=== PATIENT | female | born 2000 | race Caucasian/White ===

== ENCOUNTER 2021-05-14 20:01 | Inpatient (IN) ==
[2021-05-14] MEDS ORDERED: SODIUM CHLORIDE 0.9% 1000ML 1,000 ML IV STA ×2 (20:38)
[2021-05-14 21:27] LABS: Basophils # (auto) 0.04 K/uL (0-0.2); Basophils % (auto) 0.6 %; Eosinophils # (auto) 0.02 K/uL (0-0.5); Eosinophils % (auto) 0.3 %; Hematocrit (blood only) 39.4 % (37-47); Immature Granulocytes # (auto) 0.01 K/uL (0.00-0.02); Immature Granulocytes % (auto) 0.1 %; Lymphocytes # (auto) 1.37 K/uL (1.2-3.4); Lymphocytes % (auto) 18.9 %; Mean Platelet Volume 10.9 fL (7.4-10.4); Monocytes # (auto) 0.33 K/uL (0.11-0.59); Monocytes % (auto) 4.6 %; Neutrophils # (auto) 5.47 K/uL (1.4-6.5); Neutrophils % (auto) 75.5 %; Platelet Count 404 K/uL (130-400); RDW Coefficient of Variation 14.2 % (11.5-14.5); Red Blood Count 4.33 M/uL (4.2-5.4); White Blood Count 7.24 K/uL (4.8-10.8)
[2021-05-14 21:38] LABS: D Dimer 340 ug/L FEU (0-500); Partial Thromboplastin Ratio 0.9; Partial Thromboplastin Time 26.1 Seconds (21.0-31.0); Prothrombin Time 10.9 Seconds (9.0-12.0)
[2021-05-14 21:49] LABS: Troponin I < 0.03 ng/ml (0-0.04)
[2021-05-14 21:51] LABS: Alanine Aminotransferase 378 U/L (7-52); Albumin Globulin Ratio 1.2 (0.9-2); Albumin Level 4.4 gm/dl (3.4-5.0); Alkaline Phosphatase 147 U/L (34-104); Anion Gap 8 (3-11); Aspartate Aminotransferase 137 U/L (13-39); BUN Creatinine Ratio 9.3 (10-20); Bilirubin,Total 3.7 mg/dl (0.2-1.0); Blood Urea Nitrogen 7 mg/dl (6-23); Carbon Dioxide 22 mmol/L (21-32); Chloride 107 mmol/L (98-107); Creatinine Clr Calc Pharmacy 151.7 ml/min; Est GFR (African American) 132.1 ml/min; Est GFR (Non-African American) 113.9 ml/min; Globulin 3.7 gm/dl (2.5-4.0); Glucose 110 mg/dl (70-99(Fasting)); Lipase 20 U/L (11-82); Potassium 3.9 mmol/L (3.5-5.1); Sodium 137 mmol/L (136-145); Total Protein 8.1 gm/dl (6.0-8.3)
--- NOTE | 2021-05-15 00:07 | Emergency Department Note ---
History of Present Illness General Chief complaint: GI Assessment Stated complaint: MED EX SAW OBSTRUCTION IN STOMACH, NEEDS XRAY Time Seen by Provider: 05/14/21 20:22 History of Present Illness Maximum Pain Intensity: 1 20-year-old female who presents to the emergency department with a friend at the referral of the [facility] [place]. The patient presents with complaint of generalized chest, right posterior shoulder and upper stomach discomfort. The patient reports that she has had discomfort for the past 3 days. The patient reports that she now has difficulty eating large amounts of food or drink without vomiting. When she does vomit, the pain completely goes away. Patient reports that she has had reflux in the past, and reports that this feels similar. She denies any shortness of breath or other upper respiratory symptoms. She denies current control or tobacco use. She denies personal or family history of blood clots or heart disease. Patient den ies history of gallbladder disease. She denies any significant central or lower back discomfort. She denies any other significant alleviating or aggravating factors for the pain, and rates her discomfort a 2 out of 10 on my exam. The patient reports that they did do an x-ray at the [facility] told her that she possibly has a gastric outlet obstruction. Home Medications Medication Instructions Recorded Confirmed Type calcium carbonate 200 mg calcium 400 - 600 mg PO BID PRN 05/14/21 05/14/21 History (500 mg) chewable tablet (Tums) famotidine 20 mg tablet (Pepcid) 20 mg PO DAILY 05/14/21 05/14/21 History ondansetron HCl 4 mg tablet 4 mg PO Q6H PRN 05/14/21 05/14/21 History Allergies Allergy/AdvReac Type Severity Reaction Status Date / Time No Known Allergies Allergy Unverified 05/14/21 22:10 Past Med/Surg History Medical History No significant past medical history Surgical History No significant past surgical history Family History Mother Gallbladder disease Social History Smoking Status: Never smoker Preferred Language: Kazakh marital status: Single current occupational status: student Feels Safe at Home: Yes Review of Systems 10 system review was performed and was negative except for pertinent positives and negatives as indicated in history of present illness Physical Exam Vital Signs Vital Signs - 24 hr 05/14/21 20:08 05/14/21 21:16 05/14/21 23:23 Temperature 36.8 C Temperature Source Temporal Artery Scan Pulse Rate 70 Pulse Rate [Right Finger] 59 L 55 L Respiratory Rate 18 20 20 Respiratory Effort / Characteristics Non-Labored Spontaneous Non-Labored Spontaneous Respiratory Depth Normal Normal Respiratory Pattern Regular Regular Blood Pressure 126/80 Blood Pressure [Right Arm] 129/55 L 115/62 Blood Pressure Mean 95 Blood Pressure Mean [Right Arm] 79 79 Blood Pressure Position [Right Arm] Lying Pulse Oximetry 99 100 99 Oxygen Delivery Method Room Air Room Air Room Air Sepsis Recent Fever Within 48 Hours No Sepsis New/Unexplained Change in Mental Status No Sepsis Action Taken by Nursing No Action Required 05/15/21 01:00 Temperature Temperature Source Pulse Rate Pulse Rate [Right Finger] 59 L Respiratory Rate 20 Respiratory Effort / Characteristics Respiratory Depth Respiratory Pattern Blood Pressure Blood Pressure [Right Arm] 124/69 Blood Pressure Mean Blood Pressure Mean [Right Arm] 87 Blood Pressure Position [Right Arm] Pulse Oximetry 98 Oxygen Delivery Method Sepsis Recent Fever Within 48 Hours Sepsis New/Unexplained Change in Mental Status Sepsis Action Taken by Nursing CONSTITUTIONAL: Healthy and well nourished. Patient does not appear in any acute distress. HEENT: No scleral icterus or conjunctival injection/pallor. NECK: Full active range of motion without discomfort. RESPIRATORY: Clear to auscultation bilaterally with no wheezing, crackles, rhonchi or stridor. The breathing does not worsen discomfort. CARDIOVASCULAR: Regular rate and rhythm with no murmurs, rubs or gallops. GASTROINTESTINAL: Bowel sounds present in all quadrants. Patient has mild right upper quadrant and epigastric tenderness to palpation. No obvious Marshall sign, CVA tenderness, McBurney's point tenderness, rigidity, guarding or rebound. MUSCULOSKELETAL: Full range of motion of all joints without discomfort. No worsening pain with range of motion of the right shoulder. INTEGUMENTARY: No rash or other significant dermatologic conditions noted. HEMATOLOGIC: No ecchymosis or petechiae. PSYCHIATRIC: Positive affect. NEUROLOGIC: No focal neurologic deficits noted. Course Course Patient history and physical exam were performed. Nurses notes were reviewed. Vital signs were reviewed and were normal. The patient brought no additional paperwork or imaging studies with her from the [facility] [place]. IV access was established, and labs were drawn. The patient was hydrated with a liter normal saline. She refused any analgesics or antiemetics. And abdomen obstruction series with a PA chest view was performed and was normal without evidence for abdominal free air, obstructive pattern or other acute intrathoracic findings. Review of labs shows a normal white count with a mild thrombocytosis. No left shift or bandemia is noted. Coagulation studies, D- dimer and troponin were normal. CMP shows an elevated total bilirubin of 3.7, AST 137, ALT 378 and alkaline phosphatase of 147. Lipase was normal. Urine was negative. Laboratory findings were discussed with the patient. I did recommend gallbladder ultrasound for further evaluation of cholecystitis. In the meantime, the patient reports that she did call her mother regarding her status, with her mother reporting that she also had her gallbladder removed in her early 40s; the patient was not aware of this history. There was a delay after ultrasound studies were performed due to a delay with [employer] reads. human performance technologist notes does show evidence for gallbladder wall thickening and gallstones, likely consistent with cholecystitis. The case was discussed with Dusty Cullen PA-C with the [facility] surgical service, who recommended hospitalist admission with GI consultation as well. The case was then further discussed with Dr. Lorna Mcdowell, [facility] hospitalist service. Please see their dictations for further treatment and final disposition. COVID-19 test was performed and was negative. The patient refused any additional analgesics or antiemetics prior to transfer of care. Administered Medications Discontinued Medications Sodium Chloride (Nss 1000ml) 1,000 mls @ 999 mls/hr IV .Q1H1M STA Stop: 05/14/21 21:38 Last Infusion: 05/14/21 22:20 Dose: 0 mls/hr Documented by: [id number] Infusion: 05/14/21 22:20 Dose: 0 mls/hr Documented by: [id number] Admin: 05/14/21 20:47 Dose: 999 mls/hr Documented by: [id number] Sodium Chloride (Nss 1000ml) 1,000 mls @ 999 mls/hr IV .Q1H1M STA Stop: 05/14/21 21:38 Last Infusion: 05/14/21 22:21 Dose: 0 mls/hr Documented by: [id number] Admin: 05/14/21 20:47 Dose: 999 mls/hr Documented by: [id number] Medical Decision Making Medical Records Attestation: I reviewed the patient's medical records. Home Medications Current Medication List: was personally reviewed by me Laboratory Data Attestation: I reviewed the patient's lab results. Result diagrams: 05/14/21 20:46 05/14/21 20:46 Lab Results 05/14/21 05/14/21 05/14/21 Range/Units 20:46 20:46 20:46 WBC 7.24 (4.8-10.8) K/uL RBC 4.33 (4.2-5.4) M/uL Hgb 13.0 (12.0-16.0) g/dL Hct 39.4 (37-47) % MCV 91.0 (80-100) fL MCH 30.0 (25-34) pg MCHC 33.0 (32-36) g/dL RDW Std Deviation 48.0 H (36.4-46.3) fL RDW Coeff of Jesu 14.2 (11.5-14.5) % Plt Count 404 H (130-400) K/uL MPV 10.9 H (7.4-10.4) fL Immature Gran % (Auto) 0.1 % Neut % (Auto) 75.5 % Lymph % (Auto) 18.9 % Moore % (Auto) 4.6 % Eos % (Auto) 0.3 % Baso % (Auto) 0.6 % Neut # (Auto) 5.47 (1.4-6.5) K/uL Lymph # (Auto) 1.37 (1.2-3.4) K/uL Moore # (Auto) 0.33 (0.11-0.59) K/uL Eos # (Auto) 0.02 (0-0.5) K/uL Baso # (Auto) 0.04 (0-0.2) K/uL Immature Gran # (Auto) 0.01 (0.00-0.02) K/uL PT 10.9 (9.0-12.0) Seconds INR 1.0 (0.9-1.1) APTT 26.1 (21.0-31.0) Seconds PTT Ratio 0.9 D-Dimer 340 (0-500) ug/L FEU Sodium 137 (136-145) mmol/L Potassium 3.9 (3.5-5.1) mmol/L Chloride 107 (98-107) mmol/L Carbon Dioxide 22 (21-32) mmol/L Anion Gap 8 (3-11) BUN 7 (6-23) mg/dl Creatinine 0.75 (0.6-1.2) mg/dl Est Cr Clr Drug Dosing 151.7 ml/min Est GFR ( Amer) 132.1 ml/min Est GFR (Non-Af Amer) 113.9 ml/min BUN/Creatinine Ratio 9.3 L (10-20) Glucose 110 H (70-99(Fasting)) mg/dl Calcium 10.0 (8.5-10.1) mg/dl Total Bilirubin 3.7 H (0.2-1.0) mg/dl AST 137 H (13-39) U/L ALT 378 H (7-52) U/L Alkaline Phosphatase 147 H (34-104) U/L Troponin I < 0.03 (0-0.04) ng/ml Total Protein 8.1 (6.0-8.3) gm/dl Albumin 4.4 (3.4-5.0) gm/dl Globulin 3.7 (2.5-4.0) gm/dl Albumin/Globulin Ratio 1.2 (0.9-2) Lipase 20 (11-82) U/L POC Ur Test (NEG) 05/14/21 Range/Units 20:57 WBC (4.8-10.8) K/uL RBC (4.2-5.4) M/uL Hgb (12.0-16.0) g/dL Hct (37-47) % MCV (80-100) fL MCH (25-34) pg MCHC (32-36) g/dL RDW Std Deviation (36.4-46.3) fL RDW Coeff of Jesu (11.5-14.5) % Plt Count (130-400) K/uL MPV (7.4-10.4) fL Immature Gran % (Auto) % Neut % (Auto) % Lymph % (Auto) % Moore % (Auto) % Eos % (Auto) % Baso % (Auto) % Neut # (Auto) (1.4-6.5) K/uL Lymph # (Auto) (1.2-3.4) K/uL Moore # (Auto) (0.11-0.59) K/uL Eos # (Auto) (0-0.5) K/uL Baso # (Auto) (0-0.2) K/uL Immature Gran # (Auto) (0.00-0.02) K/uL PT (9.0-12.0) Seconds INR (0.9-1.1) APTT (21.0-31.0) Seconds PTT Ratio D-Dimer (0-500) ug/L FEU Sodium (136-145) mmol/L Potassium (3.5-5.1) mmol/L Chloride (98-107) mmol/L Carbon Dioxide (21-32) mmol/L Anion Gap (3-11) BUN (6-23) mg/dl Creatinine (0.6-1.2) mg/dl Est Cr Clr Drug Dosing ml/min Est GFR ( Amer) ml/min Est GFR (Non-Af Amer) ml/min BUN/Creatinine Ratio (10-20) Glucose (70-99(Fasting)) mg/dl Calcium (8.5-10.1) mg/dl Total Bilirubin (0.2-1.0) mg/dl AST (13-39) U/L ALT (7-52) U/L Alkaline Phosphatase (34-104) U/L Troponin I (0-0.04) ng/ml Total Protein (6.0-8.3) gm/dl Albumin (3.4-5.0) gm/dl Globulin (2.5-4.0) gm/dl Albumin/Globulin Ratio (0.9-2) Lipase (11-82) U/L POC Ur Test NEG (NEG) Imaging Data Attestation: I personally reviewed and interpreted this imaging study as follows: My Impression: My interpretation of an abdomen obstruction series with the PA chest view does not show any obstructive pattern, subdiaphragmatic air, pneumothorax, cardiac prominence or pulmonary infiltrates/consolidations. Radiologist report is pending. Right upper quadrant ultrasound was pending at the time of transfer of care to the hospitalist service, but voip technician notes are suggestive of cholecystitis. Local radiologist report is pending. Blood Pressure Blood Pressure Findings: Normal blood pressure MDM Narrative Patient presents emergency department with complaint of epigastric right upper quadrant pain for the past 4 days. Work-up today does show elevated LFTs, total bilirubin and alkaline phosphatase. Initial ultrasound findings are suggestive of cholecystitis. The patient has undergone surgical consultation, who has recommended GI consultation for possible MRCP. At this point, no other acute findings are noted to suggest pancreatitis, bowel obstruction or abdominal free air or acute findings within the thoracic region. Patient's cardiac work-up, including ECG and troponin were also normal. D-dimer was also normal, with low likelihood of pulmonary embolus. Impression & Plan Cholecystitis with cholelithiasis, Nausea and vomiting, Intermittent right upper quadrant abdominal pain Discharge Plan Visit Data Chief Complaint: GI Assessment Stated Complaint: MED EX SAW OBSTRUCTION IN STOMACH, NEEDS XRAY ED Provider: Raf Portillo ED Midlevel Provider: Brent Valerio Discharge Problem: Cholecystitis with cholelithiasis, Nausea and vomiting, Intermittent right upper quadrant abdominal pain Forms Stand Alone Forms: [facility] [employer] Prescriptions Prescriptions: No Action ondansetron HCl 4 mg Tablet 4 mg PO Q6H PRN (Reason: Nausea) RF: 0 famotidine [Pepcid] 20 mg Tablet 20 mg PO DAILY RF: 0 calcium carbonate [Tums] 200 mg calcium (500 mg) Tablet,Chewable 400 - 600 mg PO BID PRN (Reason: gi-upset) RF: 0 Referrals Referrals: [facility] [Primary Care Provider] - Discharge Problem: Cholecystitis with cholelithiasis Qualifiers: Cholelithiasis location: gallbladder Cholecystitis acuity: acute Biliary obstruction: with biliary obstruction Qualified Code(s): K80.01 - Calculus of gallbladder with acute cholecystitis with obstruction Nausea and vomiting Qualifiers: Vomiting type: unspecified Qualified Code(s): R11.2 - Nausea with vomiting, unspecified
--- NOTE | 2021-05-15 01:10 | Surgery Consultation ---
Date of Consultation May 15, 2021 Assessment & Plan (1) Cholecystitis with cholelithiasis: Due to the patient's clinical presentation, labs,, imaging she is being admitted on the hospitalist service. We recommend proceeding as follows: Provide analgesics Provide antiemetics Recommend initiating antibiotics Hydration measures with IV fluids to be implemented Implement n.p.o. status Recommend following serial labs Patient is noted to have elevated LFTs. I suspect this may be due to to her gallstones. It is possible unlikely that she has passed gallstones in her common bile duct. Therefore recommend that she undergo an MRCP to evaluate for choledocholithiasis. Choledocholithiasis is present, gastroenterology consultation will be warranted for consideration of ERCP. The decision about proceeding with cholecystectomy will be impacted by results of MRCP as well as potential gastroenterology input. We will continue to follow along with the patient is hospitalized and await results of pending studies with further input to follow. At the patient's request I discussed the above with her mother via phone at [phone] Supervising Physician Co-Signing Physician Notes I personally saw and evaluated the patient with Sohail Cullen PA-C and agree with the assessment and plan. 20-year-old female with cholelithiasis, elevated LFTs concerning for choledocholithiasis Ultrasound images and results reviewed by me, dilated CBD Would recommend a GI consult to evaluate for choledocholithiasis Clinically she does not have acute cholecystitis We will follow up on GI recommendations We will plan on cholecystectomy this admission following any GI recommendations History of Present Illness Reason for Consultation: Cholelithiasis History of Present Illness This is a 20-year-old female who presented to [facility] emergency department at the recommendation of a medical [facility] where she sought care. Patient notes for approximately 3 days she has been having postprandial pain located primarily in the epigastric and right upper quadrant. When the pa in comes she says it is usually related to eating. She says that the pain is improved with nausea vomiting which usually ensue. She denies any fevers, shakes, chills. She does note that the pain comes and goes without any other modifying factors. She did report that she tried taking Pepcid which helped only slightly with the pain. Patient reports that she has not had any prior abdominal surgeries. In the emergency department [facility] the patient did have an obstruction series that did not show any free air under her diaphragm or any evidence of infiltrates in the lungs. Abdominal ultrasound showed gallstones with gallbladder sludge. Labs include a CBC her white blood cell count, hemoglobin, hematocrit, were all within normal range. Her platelet count was noted to be 44,000. Coagulation studies were noted to be normal. Chemistry profile showed sodium, potassium, BUN, and creatinine were all normal. Patient did have elevation of LFTs with a total bilirubin of 3.7. AST and ALT were 137 and 378 respectively. Alkaline phosphatase was 147. A test was noted be negative. A Covid test was ordered and is pending. Her lipase was nonelevated. At the time of my interview she was resting comfortably in bed in no distress. Allergies Allergy/AdvReac Type Severity Reaction Status Date / Time No Known Allergies Allergy Unverified 05/14/21 22:10 Home Medications Medication Instructions Recorded Confirmed Type calcium carbonate 200 mg calcium 400 - 600 mg PO BID PRN 05/14/21 05/14/21 History (500 mg) chewable tablet (Tums) famotidine 20 mg tablet (Pepcid) 20 mg PO DAILY 05/14/21 05/14/21 History ondansetron HCl 4 mg tablet 4 mg PO Q6H PRN 05/14/21 05/14/21 History Patient History Medical History No significant past medical history Surgical History No significant past surgical history Family History Mother Gallbladder disease Social History Smoking Status: Never smoker Hx Alcohol Use: Yes Hx Substance Use: No Preferred Language: Argentine Belt Sander Stone Required: No Beliefs That Will Affect Care: None marital status: Single Current Living Situation: Other Current Living Situation Comment: Apartment- college current occupational status: student Feels Safe at Home: Yes Assistive Devices: None Review of Systems Constitutional: no fever and no chills Eyes: no diplopia Ear, Nose, Mouth, Throat: no ear pain Respiratory: no cough and no dyspnea Cardiovascular: no chest pain Gastrointestinal: + abdominal pain, + nausea and + vomiting Genitourinary: no dysuria Musculoskeletal: no back pain Integumentary: no rash Neurologic: no localized weakness Physical Exam Constitutional: WD/WN, vitals as above Eyes: + anicteric sclerae ENMT: Ears: no hearing impairment and no external ear abnormality No sublingual jaundice Neck: trachea midline Respiratory: normal respiratory effort; no respiratory distress and no labored breathing Cardiovascular: Rate/Rhythm: regular rate and regular rhythm Gastrointestinal (Abdomen): Abdomen is soft and nondistended. There is no rebound tenderness or guarding. There is slight pain noted with palpation of the epigastric area and to a lesser degree the right upper quadrant. Musculoskeletal: No calf tenderness Skin: no rashes and no jaundice Neurologic: moves all extremities Psychiatric: A+Ox3, euthymic affect Results & Data ([facility]) Vital Signs (Past 12 Hours) Vital Signs Temp Pulse Pulse Resp BP BP Pulse Ox 05/15/21 01:00 59 L 20 124/69 98 05/14/21 23:23 55 L 20 115/62 99 05/14/21 21:16 59 L 20 129/55 L 100 05/14/21 20:08 36.8 C 70 18 126/80 99 PG Care Time/CCT Total # of Minutes Spent Total Time Spent with Patient: Total time spent is greater than 50% in coordination of care (as documented) at patient's floor/unit and/or counseling patient: Coding Level of Care Code 69509 Inpt Consult Level 5 Diagnoses Cholecystitis with cholelithiasis K80.01 Biliary obstruction: with biliary obstruction Cholecystitis acuity: acute Cholelithiasis location: gallbladder (1) Cholecystitis with cholelithiasis Biliary obstruction: with biliary obstruction Cholecystitis acuity: acute Cholelithiasis location: gallbladder Qualified Code(s): K80.01 - Calculus of gallbladder with acute cholecystitis with obstruction
--- NOTE | 2021-05-15 01:27 | History & Physical Report ---
Date of Service May 15, 2021 Assessment & Plan (1) Cholecystitis with cholelithiasis: Plan: Concern for acute gallstone cholecystitis. Elevation of LFTs as above - Tbili/AP/AST and ALT -Admit to medical -Zosyn 3.357gm -Morphine PRN pain -Tylenol PRN pain or fever -Zofran PRN nausea -LR at 125mL/hr x 2 liters -Obtain MRCP to assess for choledocholithiasis. GI consultation pending results of MRCP -General Surgery consultation appreciated -Repeat LFTs, CBC in AM (2) Nausea and vomiting: Plan: Secondary to #1 -Zofran PRN Plan: F/E/N - LR at 125mL/hr x 2, electrolytes WNL, NPO for now Ppx - Low risk for DVT Code - Full per discussion with patient Dispo -Admit to medical History of Present Illness Chief Complaint: Abdominal pain Primary Care Provider: Rust Gini Vee is a pleasant 20yo female with no significant past medical or surgical history presenting with three days of abdominal discomfort. Pain is mostly post-prandial, located in RUQ, upper abdomen, chest and right shoulder. She has associated nausea with several episodes of non-bloody/non-bilious vomiting. Her pain is resolved with vomiting. No fever, chills, cough, SOB, diarrhea, dysuria No additional complaints at this time Patient afebrile, HD stable in the ER ER Course: NSS Allergies Allergy/AdvReac Type Severity Reaction Status Date / Time No Known Allergies Allergy Unverified 05/14/21 22:10 Home Medications Medication Instructions Recorded Confirmed Type calcium carbonate 200 mg calcium 400 - 600 mg PO BID PRN 05/14/21 05/14/21 History (500 mg) chewable tablet (Tums) famotidine 20 mg tablet (Pepcid) 20 mg PO DAILY 05/14/21 05/14/21 History ondansetron HCl 4 mg tablet 4 mg PO Q6H PRN 05/14/21 05/14/21 History Past Med/Surg History Medical History No significant past medical history Surgical History No significant past surgical history Family History Mother Gallbladder disease Social History Smoking Status: Never smoker Preferred Language: Welsh marital status: Single current occupational status: student Feels Safe at Home: Yes Review of Systems Review of Systems: All systems reviewed & are unremarkable except as noted in HPI & below Physical Exam Physical Exam: General: patient resting comfortably, NAD, non-toxic in appearance, AA&O x 4 Skin: warm, dry, intact, no rashes or lesions HEENT: NC/AT, PERRL, EOMI, anicteric sclera, conjunctiva without injection, external ear normal to inspection and nontender, nares patent, moist mucus membranes, dentition intact, no oropharyngeal lesions, neck supple, trachea midline, no LAD, no thyromegaly, no JVD Heart: +S1/S2, regular, no m/r/g Lungs: equal air entry bilaterally, no rales/rhonchi/wheezes Abd: +BS, soft, NT/ND, no masses/organomegaly/ascites, negative Marshall's sign Ext: warm, 2+ pulses in UE/LE bilaterally, no clubbing/cyanosis or edema Neuro: nonfocal, patient AA&O x 4, speech intact, no facial droop, moving all extremities on command with equal strength 5/5 Results & Data Results & Data ([facility]) Vital Signs (Past 12 Hours) Vital Signs Temp Pulse Pulse Resp BP BP Pulse Ox 05/15/21 01:00 59 L 20 124/69 98 05/14/21 23:23 55 L 20 115/62 99 05/14/21 21:16 59 L 20 129/55 L 100 05/14/21 20:08 36.8 C 70 18 126/80 99 Laboratory Results Laboratory Results WBC 7.24 K/uL (4.8-10.8) 05/14/21 20:46 RBC 4.33 M/uL (4.2-5.4) 05/14/21 20:46 Hgb 13.0 g/dL (12.0-16.0) 05/14/21 20:46 Hct 39.4 % (37-47) 05/14/21 20:46 MCV 91.0 fL (80-100) 05/14/21 20:46 MCH 30.0 pg (25-34) 05/14/21 20:46 MCHC 33.0 g/dL (32-36) 05/14/21 20:46 RDW Std Deviation 48.0 fL (36.4-46.3) H 05/14/21 20:46 RDW Coeff of Jesu 14.2 % (11.5-14.5) 05/14/21 20:46 Plt Count 404 K/uL (130-400) H 05/14/21 20:46 MPV 10.9 fL (7.4-10.4) H 05/14/21 20:46 Immature Gran % (Auto) 0.1 % 05/14/21 20:46 Neut % (Auto) 75.5 % 05/14/21 20:46 Lymph % (Auto) 18.9 % 05/14/21 20:46 [place] % (Auto) 4.6 % 05/14/21 20:46 Eos % (Auto) 0.3 % 05/14/21 20:46 Baso % (Auto) 0.6 % 05/14/21 20:46 Neut # (Auto) 5.47 K/uL (1.4-6.5) 05/14/21 20:46 Lymph # (Auto) 1.37 K/uL (1.2-3.4) 05/14/21 20:46 [place] # (Auto) 0.33 K/uL (0.11-0.59) 05/14/21 20:46 Eos # (Auto) 0.02 K/uL (0-0.5) 05/14/21 20:46 Baso # (Auto) 0.04 K/uL (0-0.2) 05/14/21 20:46 Immature Gran # (Auto) 0.01 K/uL (0.00-0.02) 05/14/21 20:46 PT 10.9 Seconds (9.0-12.0) 05/14/21 20:46 INR 1.0 (0.9-1.1) 05/14/21 20:46 APTT 26.1 Seconds (21.0-31.0) 05/14/21 20:46 PTT Ratio 0.9 05/14/21 20:46 D-Dimer 340 ug/L FEU (0-500) 05/14/21 20:46 Sodium 137 mmol/L (136-145) 05/14/21 20:46 Potassium 3.9 mmol/L (3.5-5.1) 05/14/21 20:46 Chloride 107 mmol/L (98-107) 05/14/21 20:46 Carbon Dioxide 22 mmol/L (21-32) 05/14/21 20:46 Anion Gap 8 (3-11) 05/14/21 20:46 BUN 7 mg/dl (6-23) 05/14/21 20:46 Creatinine 0.75 mg/dl (0.6-1.2) 05/14/21 20:46 Est Cr Clr Drug Dosing 151.7 ml/min 05/14/21 20:46 Est GFR ( Amer) 132.1 ml/min 05/14/21 20:46 Est GFR (Non-Af Amer) 113.9 ml/min 05/14/21 20:46 BUN/Creatinine Ratio 9.3 (10-20) L 05/14/21 20:46 Glucose 110 mg/dl (70-99(Fasting)) H 05/14/21 20:46 Calcium 10.0 mg/dl (8.5-10.1) 05/14/21 20:46 Total Bilirubin 3.7 mg/dl (0.2-1.0) H 05/14/21 20:46 AST 137 U/L (13-39) H 05/14/21 20:46 ALT 378 U/L (7-52) H 05/14/21 20:46 Alkaline Phosphatase 147 U/L (34-104) H 05/14/21 20:46 Troponin I < 0.03 ng/ml (0-0.04) 05/14/21 20:46 Total Protein 8.1 gm/dl (6.0-8.3) 05/14/21 20:46 Albumin 4.4 gm/dl (3.4-5.0) 05/14/21 20:46 Globulin 3.7 gm/dl (2.5-4.0) 05/14/21 20:46 Albumin/Globulin Ratio 1.2 (0.9-2) 05/14/21 20:46 Lipase 20 U/L (11-82) 05/14/21 20:46 POC Ur Test NEG (NEG) 05/14/21 20:57 SARS-CoV-2, RNA, NAAT NEGATIVE (NEGATIVE) 05/15/21 01:00 Diagnostic Findings Abdominal US performed - read pending CXR - by my interpretation, no acute illness ECG Additional Comments: EKG with sinus bradycardia at 54bpm, no acute ischemic changes Code Status & VTE Plan VTE Prophylaxis Plan VTE Prophylaxis will be ordered: No PG Care Time/CCT Total # of Minutes Spent Total Time Spent with Patient: Total time spent is greater than 50% in coordination of care (as documented) at patient's floor/unit and/or counseling patient: Coding Level of Care Code INT OBSERVATION CARE 50M LVL 2 Diagnoses Cholecystitis with cholelithiasis K80.01 Biliary obstruction: with biliary obstruction Cholecystitis acuity: acute Cholelithiasis location: gallbladder Nausea and vomiting R11.2 Vomiting type: unspecified (1) Cholecystitis with cholelithiasis Biliary obstruction: with biliary obstruction Cholecystitis acuity: acute Cholelithiasis location: gallbladder Qualified Code(s): K80.01 - Calculus of gallbladder with acute cholecystitis with obstruction (2) Nausea and vomiting Vomiting type: unspecified Qualified Code(s): R11.2 - Nausea with vomiting, unspecified
[2021-05-15] MEDS ORDERED: PIPERACILLIN/TAZOBACTAM 3.375 GM in DEXTROSE 5% 100 ML IV ONE (02:30)
[2021-05-15] MEDS ORDERED: ONDANSETRON INJ 2 MG/ML 2 ML VIAL IV PRN (02:30)
[2021-05-15] MEDS ORDERED: MoRPHine SULFATE 2 MG/ML CARP IV PRN (02:30)
[2021-05-15] MEDS ORDERED: PIPERACILL/TAZOBAC CONSULT ACTIVE PRN (02:30)
[2021-05-15] MEDS: LACTATED RINGER'S 1,000 ML IV SCH ×3 (03:21→18:10)
--- NOTE | 2021-05-15 06:32 | Surgery Progress Note ---
Date of Service May 15, 2021 Assessment & Plan (1) Cholecystitis with cholelithiasis: Plan: Patient has been admitted on the hospitalist service. We are proceeding as follows: Continue analgesics as needed Continue antiemetics as needed -Continue antibiotics Zosyn has been initiated Continue hydration measures with IV fluids Maintain on n.p.o. status for the present time Follow serial labs, which are pending this morning As noted at time of admission patient had elevation of LFTs. An MRCP has been ordered which is pending. Results of MRCP will dictate the next step in her care plan. If choledocholithiasis is noted GI consultation with potential ERCP may be warranted. If choledocholithiasis is not noted the decision to proceed directly with cholecystectomy may be entertained. Further recommendations will be made based on pending labs and MRCP results. At the patient's request I discussed the above with her mother via phone at [phone] shortly after my visit in the emergency department Admission and Anticipated Discharge Date Admission Date: May 15, 2021 Supervising Physician Co-Signing Physician Notes I personally saw and evaluated the patient with Sohail Cullen PA-C and agree with the assessment and plan. 20-year-old female with cholelithiasis, elevated LFTs concerning for choledocholithiasis Await GI consult to evaluate for choledocholithiasis Clinically she does not have acute cholecystitis We will follow up on GI recommendations We will plan on cholecystectomy this admission following any GI recommendations Subjective Patient is resting comfortably in bed. Since admission she denies any recurrence or worsening abdominal pain. She also denies any nausea vomiting. He does not voice any new concerns. Physical Exam Gastrointestinal (Abdomen): Abdomen is soft, nondistended, and nontender at this time Results & Data ([facility]) Vital Signs (Past 12 Hours) Vital Signs Temp Pulse Pulse Resp BP BP Pulse Ox 05/15/21 02:40 36.7 C 63 17 129/76 98 05/15/21 02:15 66 20 142/96 H 98 05/15/21 01:00 59 L 20 124/69 98 05/14/21 23:23 55 L 20 115/62 99 05/14/21 21:16 59 L 20 129/55 L 100 05/14/21 20:08 36.8 C 70 18 126/80 99 PG Care Time/CCT Total # of Minutes Spent Total Time Spent with Patient: Total time spent is greater than 50% in coordination of care (as documented) at patient's floor/unit and/or counseling patient: Coding Level of Care Code 54219 Subseq Hosp Care Lvl 1 Diagnoses Cholecystitis with cholelithiasis K80.01 Biliary obstruction: with biliary obstruction Cholecystitis acuity: acute Cholelithiasis location: gallbladder (1) Cholecystitis with cholelithiasis Biliary obstruction: with biliary obstruction Cholecystitis acuity: acute Cholelithiasis location: gallbladder Qualified Code(s): K80.01 - Calculus of gallbladder with acute cholecystitis with obstruction
[2021-05-15 07:29] LABS: Basophils # (auto) 0.03 K/uL (0-0.2); Basophils % (auto) 0.6 %; Eosinophils # (auto) 0.09 K/uL (0-0.5); Eosinophils % (auto) 1.7 %; Hemoglobin 11.6 g/dL (12.0-16.0); Immature Granulocytes # (auto) 0.01 K/uL (0.00-0.02); Immature Granulocytes % (auto) 0.2 %; Lymphocytes # (auto) 2.32 K/uL (1.2-3.4); Lymphocytes % (auto) 42.6 %; Mean Corpuscular Hemoglobin 29.4 pg (25-34); Mean Corpuscular Hgb Conc 32.2 g/dL (32-36); Mean Corpuscular Volume 91.4 fL (80-100); Mean Platelet Volume 11.2 fL (7.4-10.4); Monocytes # (auto) 0.49 K/uL (0.11-0.59); Neutrophils % (auto) 45.9 %; Platelet Count 342 K/uL (130-400); RDW Coefficient of Variation 14.5 % (11.5-14.5); RDW Standard Deviation 48.6 fL (36.4-46.3); Red Blood Count 3.94 M/uL (4.2-5.4); White Blood Count 5.44 K/uL (4.8-10.8)
[2021-05-15 07:53] LABS: Albumin Level 3.9 gm/dl (3.4-5.0); BUN Creatinine Ratio 7.9 (10-20); Bilirubin Direct 1.3 mg/dl (0-0.2); Bilirubin,Total 2.4 mg/dl (0.2-1.0); Calcium 9.2 mg/dl (8.5-10.1); Creatinine Clr Calc Pharmacy 154.5 ml/min; Est GFR (Non-African American) 112.1 ml/min; Potassium 3.6 mmol/L (3.5-5.1); Total Protein 6.8 gm/dl (6.0-8.3)
--- NOTE | 2021-05-15 08:04 | XRay Report ---
XR abdomen 2V w PA chest CLINICAL HISTORY: Abd/chest pain. COMPARISON STUDY: No previous studies for comparison. TECHNIQUE: Single view of the chest. Supine and upright views of the abdomen. FINDINGS: Single frontal view of the chest demonstrates the cardiomediastinal silhouette to be within normal li mits. The lungs are clear of acute alveolar opacities. There is no evidence for pleural effusion. The re is no evidence for vascular congestion. There is no acute osseous pathology. Abdomen: There is no free air or significant air-fluid levels present. The bowel gas pattern is withi n normal limits without evidence for dilatation or obstruction. There is no evidence for organomegaly or gross intra-abdominal mass. No abnormal calcifications are seen along the course of the urinary t racts bilaterally. No acute osseous pathology. IMPRESSION: 1. No acute intra-abdominal or chest abnormality. ACT 112: Negative or not required by law. Electronically signed by: Jareth Hernandez M.D. 05/15/2021 8:03 AM
--- NOTE | 2021-05-15 08:28 | Ultrasound Report ---
US abdomen limited CLINICAL HISTORY: RUQ/epigastric pain. COMPARISON: None. TECHNIQUE: Multiple grayscale and color images of the right upper quadrant of the abdomen. FINDINGS: Pancreas: The pancreas is within normal limits with no focal mass or peripancreatic fluid collection identified. Liver: The liver is homogeneous in echogenicity There is no evidence for a focal mass. There is no in trahepatic biliary duct dilatation. Gallbladder: The gallbladder is well distended with cholelithiasis. Posterior acoustic shadowing is d emonstrated. There is mild wall thickening measuring 4 mm. No pericholecystic edema is seen. There wa s reportedly a negative sonographic Marshall sign. Common Bile Duct: (CBD): It is at the upper limits of normal in size measuring 7 mm Inferior Vena Cava (IVC): The imaged IVC is patent. Right kidney: There is no evidence for hydronephrosis, calculus or gross renal mass. The kidney is no rmal in size. It measures 10.2 cm in greatest length. IMPRESSION: 1. Cholelithiasis with gallbladder wall thickening. While there was a negative sonographic Marshall sig n, early acute cholecystitis cannot be excluded. If indicated clinically, hepatobiliary scan may be h elpful for further evaluation. ACT 112: Negative or not required by law. Electronically signed by: Jareth Hernandez M.D. 05/15/2021 8:25 AM
--- NOTE | 2021-05-15 08:47 | Hospitalist Progress Note ---
Date of Service May 15, 2021 Assessment & Plan (1) Cholecystitis with cholelithiasis: Plan: Concern for acute gallstone cholecystitis. Elevation of LFTs as above - Tbili/AP/AST and ALT. Mom w/ GB disease as well Right upper quadrant ultrasoundPer stat readcholelithiasis. Equivocal sonographic findings for acute cholecystitis (thickened and heterogenous gallbladder wall measuring 0.4 cm in thickness with slightly increased internal vascular flow but negative Marshall sign). Consider HIDA scan for evaluation. Mildly dilated visualized common bile duct with diameter of 0.7 cm. No choledocholithiasis or other obstructive lesion visualized in the current henry dy. Normal visualized liver, pancreas, and right kidney. Continue Zosyn LR @ 125cc/hr Pain control -- tylenol/morphine prn ZOfran prn nausea General surgery on consult -- appreciate assistance MRCP changed to stat due to being on a weekend IF evidence for choledocholithiasis, will need to consult GI for ERCP. If no evidence, surgery to take to OR for sujey --> MRCP with cholelithiasis without choledocholithiasis, however discussed with general surgery and ok to give clears today and plans NPO after midnight They would also like consult for GI just in case additional things wanted to be ordered, consult placed LFTs trending down but still elevated (on admit, TB 3.7, AST 137, ALT 378, ALP 147) --> currently TB 2.4 (DB 1.3), AST 105 ALT 294 ALP 122 Continue to trend (2) Nausea and vomiting: Plan: Secondary to #1 -Zofran PRN Plan: F/E/N - LR at 125mL/hr x 2, electrolytes WNL, Clear liquid diet for now, NPO after midnight GI consulted per surgery recs Ppx - Low risk for DVT pre-op, would order following surgery Admission and Anticipated Discharge Date Admission Date: May 15, 2021 Supervising Physician Co-Signing Physician Notes PA Supervision Note: I did not personally see or examine the patient today, but I verified all jones points of HEMA Holly's assessment and plan with the following exceptions/additions: None Subjective BRIDGE: ADMIT AFTER MIDNIGHT Seen after MRCP, discussed results. Discussed conversation with general surgery and can have some clears for today, NPO after midnight for planned sujey. Pain currently 02/28 and controlled with ordered medications. No nausea. No fever/chills, chest pain, shortness of breath, nausea at present time. Questions/concerns addressed at this time. Review of Systems Review of Systems: All systems reviewed & are unremarkable except as noted in HPI & below Physical Exam Physical Exam: General: patient resting comfortably, NAD, non-toxic in appearance, AA&O x 4 Skin: warm, dry, intact, no rashes or lesions HEENT: NC/AT, PERRL, EOMI, anicteric sclera, conjunctiva without injection, external ear normal to inspection and nontender, nares patent, moist mucus membranes, dentition intact, no oropharyngeal lesions, neck supple, trachea midline, no LAD, no thyromegaly, no JVD Heart: +S1/S2, regular, no m/r/g Lungs: equal air entry bilaterally, no rales/rhonchi/wheezes Abd: +BS, soft, NT/ND, no masses/organomegaly/ascites, negative Marshall's sign Ext: warm, 2+ pulses in UE/LE bilaterally, no clubbing/cyanosis or edema Neuro: nonfocal, patient AA&O x 4, speech intact, no facial droop, moving all extremities on command with equal strength 5/5 Results & Data Results & Data ([facility]) Vital Signs (Past 12 Hours) Vital Signs Temp Pulse Resp BP Pulse Ox 05/15/21 07:41 36.8 C 77 16 120/75 97 05/15/21 02:40 36.7 C 63 17 129/76 98 05/15/21 02:15 66 20 142/96 H 98 05/15/21 01:00 59 L 20 124/69 98 05/14/21 23:23 55 L 20 115/62 99 05/14/21 21:16 59 L 20 129/55 L 100 Laboratory Results 05/15/21 05/15/21 05/15/21 Range/Units 06:45 06:45 01:00 WBC 5.44 (4.8-10.8) K/uL RBC 3.94 L (4.2-5.4) M/uL Hgb 11.6 L (12.0-16.0) g/dL Hct 36.0 L (37-47) % MCV 91.4 (80-100) fL MCH 29.4 (25-34) pg MCHC 32.2 (32-36) g/dL RDW Std Deviation 48.6 H (36.4-46.3) fL RDW Coeff of Jesu 14.5 (11.5-14.5) % Plt Count 342 (130-400) K/uL MPV 11.2 H (7.4-10.4) fL Immature Gran % (Auto) 0.2 % Neut % (Auto) 45.9 % Lymph % (Auto) 42.6 % [place] % (Auto) 9.0 % Eos % (Auto) 1.7 % Baso % (Auto) 0.6 % Neut # (Auto) 2.50 (1.4-6.5) K/uL Lymph # (Auto) 2.32 (1.2-3.4) K/uL [place] # (Auto) 0.49 (0.11-0.59) K/uL Eos # (Auto) 0.09 (0-0.5) K/uL Baso # (Auto) 0.03 (0-0.2) K/uL Immature Gran # (Auto) 0.01 (0.00-0.02) K/uL PT (9.0-12.0) Seconds INR (0.9-1.1) APTT (21.0-31.0) Seconds PTT Ratio D-Dimer (0-500) ug/L FEU Sodium 139 (136-145) mmol/L Potassium 3.6 (3.5-5.1) mmol/L Chloride 109 H (98-107) mmol/L Carbon Dioxide 22 (21-32) mmol/L Anion Gap 8 (3-11) BUN 6 (6-23) mg/dl Creatinine 0.76 (0.6-1.2) mg/dl Est Cr Clr Drug Dosing 154.5 ml/min Est GFR ( Amer) 130.0 ml/min Est GFR (Non-Af Amer) 112.1 ml/min BUN/Creatinine Ratio 7.9 L (10-20) Glucose 92 (70-99(Fasting)) mg/dl Calcium 9.2 (8.5-10.1) mg/dl Total Bilirubin 2.4 H (0.2-1.0) mg/dl Direct Bilirubin 1.3 H (0-0.2) mg/dl AST 105 H (13-39) U/L ALT 294 H (7-52) U/L Alkaline Phosphatase 122 H (34-104) U/L Troponin I (0-0.04) ng/ml Total Protein 6.8 (6.0-8.3) gm/dl Albumin 3.9 (3.4-5.0) gm/dl Globulin (2.5-4.0) gm/dl Albumin/Globulin Ratio (0.9-2) Lipase (11-82) U/L POC Ur Test (NEG) SARS-CoV-2, RNA, NAAT NEGATIVE (NEGATIVE) 05/14/21 05/14/21 05/14/21 Range/Units 20:57 20:46 20:46 WBC (4.8-10.8) K/uL RBC (4.2-5.4) M/uL Hgb (12.0-16.0) g/dL Hct (37-47) % MCV (80-100) fL MCH (25-34) pg MCHC (32-36) g/dL RDW Std Deviation (36.4-46.3) fL RDW Coeff of Jesu (11.5-14.5) % Plt Count (130-400) K/uL MPV (7.4-10.4) fL Immature Gran % (Auto) % Neut % (Auto) % Lymph % (Auto) % [place] % (Auto) % Eos % (Auto) % Baso % (Auto) % Neut # (Auto) (1.4-6.5) K/uL Lymph # (Auto) (1.2-3.4) K/uL [place] # (Auto) (0.11-0.59) K/uL Eos # (Auto) (0-0.5) K/uL Baso # (Auto) (0-0.2) K/uL Immature Gran # (Auto) (0.00-0.02) K/uL PT 10.9 (9.0-12.0) Seconds INR 1.0 (0.9-1.1) APTT 26.1 (21.0-31.0) Seconds PTT Ratio 0.9 D-Dimer 340 (0-500) ug/L FEU Sodium 137 (136-145) mmol/L Potassium 3.9 (3.5-5.1) mmol/L Chloride 107 (98-107) mmol/L Carbon Dioxide 22 (21-32) mmol/L Anion Gap 8 (3-11) BUN 7 (6-23) mg/dl Creatinine 0.75 (0.6-1.2) mg/dl Est Cr Clr Drug Dosing 151.7 ml/min Est GFR ( Amer) 132.1 ml/min Est GFR (Non-Af Amer) 113.9 ml/min BUN/Creatinine Ratio 9.3 L (10-20) Glucose 110 H (70-99(Fasting)) mg/dl Calcium 10.0 (8.5-10.1) mg/dl Total Bilirubin 3.7 H (0.2-1.0) mg/dl Direct Bilirubin (0-0.2) mg/dl AST 137 H (13-39) U/L ALT 378 H (7-52) U/L Alkaline Phosphatase 147 H (34-104) U/L Troponin I < 0.03 (0-0.04) ng/ml Total Protein 8.1 (6.0-8.3) gm/dl Albumin 4.4 (3.4-5.0) gm/dl Globulin 3.7 (2.5-4.0) gm/dl Albumin/Globulin Ratio 1.2 (0.9-2) Lipase 20 (11-82) U/L POC Ur Test NEG (NEG) SARS-CoV-2, RNA, NAAT (NEGATIVE) 05/14/21 Range/Units 20:46 WBC 7.24 (4.8-10.8) K/uL RBC 4.33 (4.2-5.4) M/uL Hgb 13.0 (12.0-16.0) g/dL Hct 39.4 (37-47) % MCV 91.0 (80-100) fL MCH 30.0 (25-34) pg MCHC 33.0 (32-36) g/dL RDW Std Deviation 48.0 H (36.4-46.3) fL RDW Coeff of Jesu 14.2 (11.5-14.5) % Plt Count 404 H (130-400) K/uL MPV 10.9 H (7.4-10.4) fL Immature Gran % (Auto) 0.1 % Neut % (Auto) 75.5 % Lymph % (Auto) 18.9 % [place] % (Auto) 4.6 % Eos % (Auto) 0.3 % Baso % (Auto) 0.6 % Neut # (Auto) 5.47 (1.4-6.5) K/uL Lymph # (Auto) 1.37 (1.2-3.4) K/uL [place] # (Auto) 0.33 (0.11-0.59) K/uL Eos # (Auto) 0.02 (0-0.5) K/uL Baso # (Auto) 0.04 (0-0.2) K/uL Immature Gran # (Auto) 0.01 (0.00-0.02) K/uL PT (9.0-12.0) Seconds INR (0.9-1.1) APTT (21.0-31.0) Seconds PTT Ratio D-Dimer (0-500) ug/L FEU Sodium (136-145) mmol/L Potassium (3.5-5.1) mmol/L Chloride (98-107) mmol/L Carbon Dioxide (21-32) mmol/L Anion Gap (3-11) BUN (6-23) mg/dl Creatinine (0.6-1.2) mg/dl Est Cr Clr Drug Dosing ml/min Est GFR ( Amer) ml/min Est GFR (Non-Af Amer) ml/min BUN/Creatinine Ratio (10-20) Glucose (70-99(Fasting)) mg/dl Calcium (8.5-10.1) mg/dl Total Bilirubin (0.2-1.0) mg/dl Direct Bilirubin (0-0.2) mg/dl AST (13-39) U/L ALT (7-52) U/L Alkaline Phosphatase (34-104) U/L Troponin I (0-0.04) ng/ml Total Protein (6.0-8.3) gm/dl Albumin (3.4-5.0) gm/dl Globulin (2.5-4.0) gm/dl Albumin/Globulin Ratio (0.9-2) Lipase (11-82) U/L POC Ur Test (NEG) SARS-CoV-2, RNA, NAAT (NEGATIVE) Diagnostic Findings Chest/Abdomen X-ray 03/26/22 20:38 XR abdomen 2V w PA chest CLINICAL HISTORY: Abd/chest pain. COMPARISON STUDY: No previous studies for comparison. TECHNIQUE: Single view of the chest. Supine and upright views of the abdomen. FINDINGS: Single frontal view of the chest demonstrates the cardiomediastinal silhouette to be within normal limits. The lungs are clear of acute alveolar opacities. There is no evidence for pleural effusion. There is no evidence for vascular congestion. There is no acute osseous pathology. Abdomen: There is no free air or significant air-fluid levels present. The bowel gas pattern is within normal limits without evidence for dilatation or obstruction. There is no evidence for organomegaly or gross intra-abdominal mass. No abnormal calcifications are seen along the course of the urinary tracts bilaterally. No acute osseous pathology. IMPRESSION: 1. No acute intra-abdominal or chest abnormality. ACT 112: Negative or not required by law. Electronically signed by: Jareth Hernandez M.D. 05/15/2021 8:03 AM Abdomen Ultrasound 05/14/21 21:53 US abdomen limited CLINICAL HISTORY: RUQ/epigastric pain. COMPARISON: None. TECHNIQUE: Multiple grayscale and color images of the right upper quadrant of the abdomen. FINDINGS: Pancreas: The pancreas is within normal limits with no focal mass or peripancreatic fluid collection identified. Liver: The liver is homogeneous in echogenicity There is no evidence for a focal mass. There is no intrahepatic biliary duct dilatation. Gallbladder: The gallbladder is well distended with cholelithiasis. Posterior acoustic shadowing is demonstrated. There is mild wall thickening measuring 4 mm. No pericholecystic edema is seen. There was reportedly a negative sonographic Marshall sign. Common Bile Duct: (CBD): It is at the upper limits of normal in size measuring 7 mm Inferior Vena Cava (IVC): The imaged IVC is patent. Right kidney: There is no evidence for hydronephrosis, calculus or gross renal mass. The kidney is normal in size. It measures 10.2 cm in greatest length. IMPRESSION: 1. Cholelithiasis with gallbladder wall thickening. While there was a negative sonographic Marshall sign, early acute cholecystitis cannot be excluded. If indicated clinically, hepatobiliary scan may be helpful for further evaluation. ACT 112: Negative or not required by law. Electronically signed by: Jareth Hernandez M.D. 05/15/2021 8:25 AM Cholangiopancreatography MRI 05/15/21 08:42 MR MRCP CLINICAL HISTORY: abnormal LFTs, ?choledocholithiasis TECHNIQUE: Multiplanar multisequence MR images of the abdomen were obtained, as per MRCP protocol. This protocol consists of 3 plane localizer images, axial T1, axial T2, axial T2 fat saturated, coronal T2, MRCP single and MRCP volume sequences of the abdomen were obtained, without intravenous contrast. 1 mg of intramuscular glucagon was administered.. COMPARISON: None available at the time of this dictation. FINDINGS: Lower chest: No acute abnormality Liver: Unremarkable. No focal lesions are seen. Gallbladder and biliary tree: Multiple stones are seen in the gallbladder. No gallbladder wall thickening is seen. No pericholecystic edema. No intra- or extrahepatic biliary ductal dilation. The common bile duct measures 5 mm in diameter. No evidence of choledocholithiasis is seen. Pancreas: Unremarkable, no focal lesions. Spleen: Unremarkable. Adrenals: Unremarkable. Kidneys and ureters: Unremarkable. Bowel: Unremarkable. Lymph nodes Retroperitoneal: Unremarkable. Mesenteric: Unremarkable. Peritoneum: Normal Vessels: Unremarkable. Abdominal wall: Unremarkable. Bones: Minimal degenerative changes are seen in the spine. IMPRESSION: Cholelithiasis without evidence of cholecystitis or choledocholithiasis. ACT 112: Negative or not required by law. Electronically signed by: Patricio Raygoza M.D. 05/15/2021 10:15 AM PG Care Time/CCT Total # of Minutes Spent Total Time Spent with Patient: Total time spent is greater than 50% in coordination of care (as documented) at patient's floor/unit and/or counseling patient: Coding Level of Care Code None Diagnoses Cholecystitis with cholelithiasis K80.01 Biliary obstruction: with biliary obstruction Cholecystitis acuity: acute Cholelithiasis location: gallbladder Nausea and vomiting R11.2 Vomiting type: unspecified (1) Cholecystitis with cholelithiasis Biliary obstruction: with biliary obstruction Cholecystitis acuity: acute Cholelithiasis location: gallbladder Qualified Code(s): K80.01 - Calculus of gallbladder with acute cholecystitis with obstruction (2) Nausea and vomiting Vomiting type: unspecified Qualified Code(s): R11.2 - Nausea with vomiting, unspecified
[2021-05-15] MEDS: PIPERACILLIN/TAZOBACTAM 3.375 GM in DEXTROSE 5% 100 ML IV SCH ×2 (10:12→18:10)
--- NOTE | 2021-05-15 10:17 | Magnetic Resonance Report ---
MR MRCP CLINICAL HISTORY: abnormal LFTs, ?choledocholithiasis TECHNIQUE: Multiplanar multisequence MR images of the abdomen were obtained, as per MRCP protocol. is protocol consists of 3 plane localizer images, axial T1, axial T2, axial T2 fat saturated, coronal T2, MRCP single and MRCP volume sequences of the abdomen were obtained, without intravenous contrast . 1 mg of intramuscular glucagon was administered.. COMPARISON: None available at the time of this dictation. FINDINGS: Lower chest: No acute abnormality Liver: Unremarkable. No focal lesions are seen. Gallbladder and biliary tree: Multiple stones are seen in the gallbladder. No gallbladder wall thicke sanjeev is seen. No pericholecystic edema. No intra- or extrahepatic biliary ductal dilation. The common bile duct measures 5 mm in diameter. No evidence of choledocholithiasis is seen. Pancreas: Unremarkable, no focal lesions. Spleen: Unremarkable. Adrenals: Unremarkable. Kidneys and ureters: Unremarkable. Bowel: Unremarkable. Lymph nodes Retroperitoneal: Unremarkable. Mesenteric: Unremarkable. Peritoneum: Normal Vessels: Unremarkable. Abdominal wall: Unremarkable. Bones: Minimal degenerative changes are seen in the spine. IMPRESSION: Cholelithiasis without evidence of cholecystitis or choledocholithiasis. ACT 112: Negative or not required by law. Electronically signed by: Patricio Raygoza M.D. 05/15/2021 10:15 AM
--- NOTE | 2021-05-15 10:45 | Electrocardiogram Report ---
Test Reason : Blood Pressure : / mmHG Vent. Rate : 054 BPM Atrial Rate : 054 BPM P-R Int : 144 ms QRS Dur : 086 ms QT Int : 484 ms P-R-T Axes : 018 059 043 degrees QTc Int : 458 ms Sinus bradycardia Otherwise normal ECG No previous ECGs available Confirmed by Garo Timmons ([id number]) on 05/15/2021 10:45:32 AM Referred By: REFERRED SELF Confirmed By:Garo Timmons
--- NOTE | 2021-05-15 15:02 | Gastrointestinal Consultation ---
Date of Consultation May 15, 2021 Assessment & Plan (1) Cholecystitis with cholelithiasis: (2) Intermittent right upper quadrant abdominal pain: (3) Elevated LFTs: I discussed this case in detail with Dr. Mancilla, JESSE Rivas, and the patient's parents who were at the bedside. Most likely that she passed a CBD stone, as liver panel has improved, pain has improved, and CBD was decreased in size on MRCP versus RUQUS I would recommend continued Zosyn therapy as per the primary team Recommend Lap Drea with IOC to clear CBD Alternative would be to perform EUS pre-operatively, to evaluate for CBD stone, however, pre-test probability is lower with improvement in signs and symptoms. OK to have clear liquids for now, but strict NPO after midnight. Contact our service for any change in symptoms. History of Present Illness Reason for Consultation: Elevated LFT's, Cholelithiasis Attending Physician: Juana Mancilla MD History of Present Illness I had the pleasure of seeing Gini Eden today in consultation secondary to elevated LFT's and cholelithiasis. She complained of abdominal pain with right shoulder pain and GERD like symptoms for the past 3 days. She stated that she could not eat a large meal due to abdominal pain and vomiting, and initially presented to urgent care. She did undergo an abdominal x-ray which was read as possible gastric outlet obstruction, and she was subsequently sent to the ER for further evaluation. Upon arrival to the ER, she was noted to have elevations of her AST ALT Alk Phos and total Bili. She subsequently underwent a RUQ US, and was noted to have cholelithiasis, GB wall thickening, and dilated CBD of 7 mm. She was treated with IV Zosyn therapy, IVF, analgesics and antiemetics. She subsequently underwent an MRCP, and was noted to no evidence of choledocholithiasis and she did have improvement in her liver panel. At the time I saw her, she denied any abdominal pain. She states that she has not had any further nausea or vomiting, and denies any jaundice, acholic stools, dark urine or pruritus. She denies any recent alcohol use. She does note that her mother had her GB removed in the past. She has no further complaints. Allergies Allergy/AdvReac Type Severity Reaction Status Date / Time No Known Allergies Allergy Unverified 05/14/21 22:10 Home Medications Medication Instructions Recorded Confirmed Type calcium carbonate 200 mg calcium 400 - 600 mg PO BID PRN 05/14/21 05/14/21 History (500 mg) chewable tablet (Tums) famotidine 20 mg tablet (Pepcid) 20 mg PO DAILY 05/14/21 05/14/21 History ondansetron HCl 4 mg tablet 4 mg PO Q6H PRN 05/14/21 05/14/21 History Patient History Medical History No significant past medical history Surgical History No significant past surgical history Family History Mother Gallbladder disease Social History Smoking Status: Never smoker Hx Alcohol Use: Yes Hx Substance Use: No Preferred Language: Lebanese Systems Programmer Required: No Beliefs That Will Affect Care: None marital status: Single Current Living Situation: Other Current Living Situation Comment: Apartment- [employer] current occupational status: student Feels Safe at Home: Yes Assistive Devices: None Review of Systems Constitutional: as per Subjective / HPI Eyes: as per Subjective / HPI Ear, Nose, Mouth, Throat: as per Subjective / HPI Respiratory: as per Subjective / HPI Cardiovascular: as per Subjective / HPI Gastrointestinal: as per Subjective / HPI Musculoskeletal: as per Subjective / HPI Integumentary: as per Subjective / HPI Neurologic: as per Subjective / HPI Psychiatric: as per Subjective / HPI Endocrine: as per Subjective / HPI Hematologic / Lymphatic: as per Subjective / HPI Allergy / Immunological: as per Subjective / HPI Physical Exam Constitutional: well developed, well nourished and + obese; no acute distress and not ill appearing Eyes: + anicteric sclerae ENMT: external ear and nose normal, oropharynx normal Neck: trachea midline, no thyromegaly Respiratory: normal respiratory effort, lungs clear to auscultation Gastrointestinal (Abdomen): Inspection/Auscultation: abdomen normal to inspection and normal bowel sounds; abdomen not distended Percussion/Palpation: + abdomen tender (RUQ to deep palpation) and abdomen soft Skin: no rashes, warm and dry Psychiatric: A+Ox3, euthymic affect Results & Data ([facility]) Vital Signs (Past 12 Hours) Vital Signs Temp Pulse Resp BP Pulse Ox 05/15/21 07:41 36.8 C 77 16 120/75 97 PG Care Time/CCT Total # of Minutes Spent Total Time Spent with Patient: Total time spent is greater than 50% in coordination of care (as documented) at patient's floor/unit and/or counseling patient: Coding Level of Care Code 04117 Inpt Consult Level 4 Diagnoses Cholecystitis with cholelithiasis K80.01 Biliary obstruction: with biliary obstruction Cholecystitis acuity: acute Cholelithiasis location: gallbladder Intermittent right upper quadrant abdominal pain R10.11 Elevated LFTs R79.89 (1) Cholecystitis with cholelithiasis Biliary obstruction: with biliary obstruction Cholecystitis acuity: acute Cholelithiasis location: gallbladder Qualified Code(s): K80.01 - Calculus of gallbladder with acute cholecystitis with obstruction
[2021-05-16] MEDS: PIPERACILLIN/TAZOBACTAM 3.375 GM in DEXTROSE 5% 100 ML IV SCH ×3 (02:20→17:42)
[2021-05-16 06:16] LABS: Basophils # (auto) 0.03 K/uL (0-0.2); Basophils % (auto) 0.7 %; Eosinophils # (auto) 0.11 K/uL (0-0.5); Eosinophils % (auto) 2.5 %; Hematocrit (blood only) 34.6 % (37-47); Hemoglobin 11.4 g/dL (12.0-16.0); Immature Granulocytes # (auto) 0.01 K/uL (0.00-0.02); Immature Granulocytes % (auto) 0.2 %; Lymphocytes # (auto) 1.97 K/uL (1.2-3.4); Lymphocytes % (auto) 45.2 %; Mean Corpuscular Hemoglobin 30.3 pg (25-34); Mean Corpuscular Hgb Conc 32.9 g/dL (32-36); Mean Platelet Volume 10.9 fL (7.4-10.4); Monocytes # (auto) 0.46 K/uL (0.11-0.59); Monocytes % (auto) 10.6 %; Neutrophils # (auto) 1.78 K/uL (1.4-6.5); Neutrophils % (auto) 40.8 %; Platelet Count 322 K/uL (130-400); RDW Coefficient of Variation 14.4 % (11.5-14.5); RDW Standard Deviation 48.9 fL (36.4-46.3); Red Blood Count 3.76 M/uL (4.2-5.4); White Blood Count 4.36 K/uL (4.8-10.8)
[2021-05-16 06:43] LABS: Albumin Level 3.9 gm/dl (3.4-5.0); BUN Creatinine Ratio 10.1 (10-20); Bilirubin Direct 1.4 mg/dl (0-0.2); Bilirubin,Total 2.9 mg/dl (0.2-1.0); Calcium 9.3 mg/dl (8.5-10.1); Creatinine Clr Calc Pharmacy 148.7 ml/min; Potassium 3.8 mmol/L (3.5-5.1); Total Protein 6.8 gm/dl (6.0-8.3)
[2021-05-16] MEDS ORDERED: DEXAMETHASONE SOD INJ 4 MG/ML VIAL ONE (09:47)
[2021-05-16] MEDS ORDERED: PROPOFOL IV EMULSION 10 MG/ML 20 ML VIAL IV ONE ×3 (09:47→12:07)
[2021-05-16] MEDS ORDERED: fentaNYL citrate 100 MCG/2 ML VIAL ONE ×2 (09:47→12:33)
[2021-05-16] MEDS ORDERED: ONDANSETRON INJ 2 MG/ML 2 ML VIAL ONE ×2 (09:47→13:19)
--- NOTE | 2021-05-16 10:23 | Anesthesiology Consultation ---
Date of Service May 16, 2021 Assessment & Plan (1) Encounter for pre-operative examination: Chart Review Chart Review: Acceptable Risk for Surgery and Patient NOT seen in Pre Admission Testing Consults Requested none History Surgery Operation Date: 05/16/21 08:10 Proposed Procedures p Laparoscopic Cholecystectomy Possible Open Possible Cholangiogram - Chay Rodriguez, Height/Weight Height: 5 ft 9 in Weight: 109.7 kg Allergies Allergy/AdvReac Type Severity Reaction Status Date / Time No Known Allergies Allergy Unverified 05/14/21 22:10 Medications Home Medications Medication Instructions Recorded Confirmed Last Taken calcium carbonate 200 mg calcium 400 - 600 mg PO BID PRN 05/14/21 05/14/21 Unknown (500 mg) chewable tablet (Tums) famotidine 20 mg tablet (Pepcid) 20 mg PO DAILY 05/14/21 05/14/21 Unknown ondansetron HCl 4 mg tablet 4 mg PO Q6H PRN 05/14/21 05/14/21 Unknown Active Medications Generic Name Dose Route Start Last Admin Trade Name Freq PRN Reason Stop Dose Admin Piperacillin Sod/Tazobactam 115 mls @ 28.75 mls/hr 05/15/21 10:00 05/16/21 09:05 Sod 3.375 gm/ Dextrose IV 05/25/21 09:59 28.8 mls/hr Q8H LETICIA Administration Protocol NPO Date Last Intake of Fluids: 05/15/21 Time Last Intake of Fluids: 23:00 Date Last Intake of Solids: 05/14/21 Time Last Intake of Solids: 23:00 Past Medical History Medical History No significant past medical history Past Family History Family History Mother Gallbladder disease Past Surgical History Surgical History No significant past surgical history Social History Smoking Status: Never smoker Hx Alcohol Use: Yes alcohol intake frequency: a few times a week Hx Substance Use: No Physical Exam Vital Signs Last Vital Signs Temp 36.8 C 05/16/21 09:19 Pulse 69 05/16/21 09:19 Resp 18 05/16/21 09:19 BP 110/70 05/16/21 09:19 Pulse Ox 99 05/16/21 09:19 Testing Laboratory Results 05/16/21 05:56 05/16/21 05:56 PT 10.9 Seconds (9.0-12.0) 05/14/21 20:46 INR 1.0 (0.9-1.1) 05/14/21 20:46 APTT 26.1 Seconds (21.0-31.0) 05/14/21 20:46 05/14/21 20:57 POC Ur Test NEG
--- NOTE | 2021-05-16 10:26 | Surgery Progress Note ---
Date of Service May 16, 2021 Assessment & Plan (1) Elevated LFTs: Plan: To OR today for laparoscopic cholecystectomy, possible open, possible intraoperative cholangiogram Consent obtained, risks discussed including bleeding, infection, bile leak, ductal injury (2) Cholecystitis with cholelithiasis: Admission and Anticipated Discharge Date Admission Date: May 15, 2021 Subjective Patient seen and examined. Denies abdominal pain. Vital signs stable. Afebrile. Review of Systems Constitutional: no fever and no chills Physical Exam Constitutional: WD/WN, vitals as above Gastrointestinal (Abdomen): normal bowel sounds, soft, nontender, no hepatosplenomegaly Results & Data ([facility]) Vital Signs (Past 12 Hours) Vital Signs Temp Pulse Resp BP Pulse Ox 05/16/21 09:19 36.8 C 69 18 110/70 99 05/16/21 07:26 36.7 C 45 L 16 103/57 L 96 05/15/21 22:29 36.6 C 64 16 110/69 96 PG Care Time/CCT Total # of Minutes Spent Total Time Spent with Patient: Total time spent is greater than 50% in coordination of care (as documented) at patient's floor/unit and/or counseling patient: Coding Level of Care Code 95701 Subseq Hosp Care Lvl 1 Diagnoses Elevated LFTs R79.89 Cholecystitis with cholelithiasis K80.01 Biliary obstruction: with biliary obstruction Cholecystitis acuity: acute Cholelithiasis location: gallbladder (1) Cholecystitis with cholelithiasis Biliary obstruction: with biliary obstruction Cholecystitis acuity: acute Cholelithiasis location: gallbladder Qualified Code(s): K80.01 - Calculus of gallbladder with acute cholecystitis with obstruction
[2021-05-16] MEDS ORDERED: ONDANSETRON INJ 2 MG/ML 2 ML VIAL IV PRN (10:33)
[2021-05-16] MEDS ORDERED: PROMETHAZINE HCL 12.5 MG in SODIUM CHLORIDE 0.9% 50 ML IV PRN (10:33)
[2021-05-16] MEDS ORDERED: ePHEDrine sulfate 50 MG/ML AMP IV PRN (10:33)
[2021-05-16] MEDS ORDERED: ATROPINE SULFATE 0.1 MG/ML 10ML SYR IV PRN (10:33)
[2021-05-16] MEDS ORDERED: BUPIVACAINE 0.25% 30 ML VIAL ONE (10:37)
[2021-05-16] MEDS ORDERED: EPINEPHrine INJ 1 MG/ML AMP ONE (10:37)
[2021-05-16] MEDS ORDERED: ROCURONIUM BROMIDE 10 MG/ML 5 ML VIAL IV ONE ×2 (10:58→12:07)
[2021-05-16] MEDS ORDERED: GLYCOPYRROLATE 0.2 MG/ML VIAL ONE ×2 (10:58→11:10)
[2021-05-16] MEDS ORDERED: NEOSTIGMINE METHYLSULFATE 1 MG/ML 10ML VIAL ONE (10:58)
[2021-05-16] MEDS ORDERED: OPTIRAY 300 IV PRN (11:28)
--- NOTE | 2021-05-16 12:21 | Fluoroscopy Report ---
[place] cholangiogram OR CLINICAL HISTORY: CHOLANGIOGRAM COMPARISON STUDY: No previous studies for comparison. FLUOROSCOPY TIME: 2 seconds. FLUOROSCOPIC IMAGES: 3 FINDINGS: Intraoperative cholangiogram was performed. A catheter is seen in the cystic duct. There is filling of the cystic duct, common bile duct and intrahepatic biliary duct radicles. There is no ext ravasation of contrast into the duodenum with what appears to be a filling defect at the ampulla. Thi s would correspond with choledocholithiasis. The presence of marked spasm cannot be excluded but is l ess likely. IMPRESSION: Filling defect at the ampulla most characteristic of choledocholithiasis. Marked spasm wo uld also be in the differential diagnosis. Please see intraoperative report. ACT 112: Negative or not required by law. Electronically signed by: Jareth Hernandez M.D. 05/16/2021 12:20 PM
--- NOTE | 2021-05-16 12:43 | Post Operative Brief Note ---
PG Immediate Post Op with CF Date of Surgery May 16, 2021 Pre & Post Diagnosis Operation Date: 05/16/21 08:10 Pre-Op Diagnosis: Acute cholecystitis, Elevated LFT's concerning for choledocholithiasis Post-Op Diagnosis: Acute cholecystitis with choledocholithiasis I identified the patient and participated in the time-out.: Yes Procedure Operation Date: 05/16/21 08:10 Actual Procedures p Laparoscopic Cholecystectomy with intraoperative cholangiogram - Chay Rodriguez DO Surgeon Chay Rodriguez DO Cubing Machine Tender Gomez Ojeda PA-C Estimated Blood Loss 20 Findings See Below Acutely inflamed dilated gallbladder Filling defect in the distal common bile duct consistent with choledocholithiasis Specimens Specimen Description: A. Gallbladder and contents. Anesthesia Type General Complications none Disposition Disposition: Recovery Room
--- NOTE | 2021-05-16 12:48 | Operative Report ---
PG Post Operative Report Pre & Post Diagnosis Operation Date: 05/16/21 08:10 Pre-Op Diagnosis: Acute cholecystitis with elevated LFTs concerning for choledocholithiasis Post-Op Diagnosis: Acute cholecystitis with choledocholithiasis I identified the patient and participated in the time-out.: Yes Procedure Operation Date: 05/16/21 08:10 Actual Procedures p Laparoscopic Cholecystectomy with intraoperative cholangiogram - Chay Rodriguez DO Surgeon Chay Rodriguez DO Farm Boss Gomez Ojeda PA-C Estimated Blood Loss 20 Findings See Below Acutely inflamed edematous gallbladder Filling defect in the distal common bile duct consistent with choledocholithiasis Fluids see anesthesia record Specimens Gallbladder to pathology Drains None Anesthesia Type General Complications none Disposition Disposition: Recovery Room Indications 20-year-old female with ultrasound findings concerning for acute cholecystitis and elevated LFTs concerning for choledocholithiasis Description of Procedure The patient was brought to the operating room and placed in the supine position with both arms extended. At this time she underwent general endotracheal anesthesia without any problems. She was given appropriate pre-operative antibiotics. Her abdomen prepped and draped in the usual sterile fashion. A timeout was called, the procedure was verified as Laparoscopic cholecystectomy, possible open, possible intra-operative cholangiogram. Surgical, nursing and anesthesia teams agreed and the procedure was begun. After injection of 0.25% Marcaine with epinephrine, a supraumbilical vertical incision was made and carried down to the fascia using S-retractors. The abdominal wall was then elevated with towel clamps and abdomen entered using the Veress needle confirming position using the saline drop test. Pneumoperitoneum was established. 5mm trocar was placed. Laparoscope was introduced. No injury from entry into the abdomen was visualized after inspection of the abdomen. Three further ports were placed under direct visualization. One 12mm in the subxiphoid region and two 5mm in the RUQ. At this time the abdomen was inspected and the gallbladder identified. The gallbladder fundus was grasped and retracted cephalad. The gallbladder infundibulum was then grasped and retracted laterally. The cystic duct and cystic artery were then identified and skeletonized. The critical view of safety was obtained. Ductotomy was made in the cystic duct and cholangiocatheter placed. We then performed an intraoperative cholangiogram with fluoroscopy. The images were reviewed and interpreted by me and showed a filling defect in the distal common bile duct without filling of the duodenum. This is consistent with choledocholithiasis. The cystic duct and cystic artery were both then clipped twice proximally and once distally and then divided using scissors. The gallbladder was then taken off of the liver bed using electrocautery and placed in an endocatch bag and removed from the subxiphoid port. The liver bed was then inspected and no bile leak or bleeding was evident. The trocars were then removed under direct visualization and no bleeding was present. The subxiphoid port was then closed using 0-Vicryl using the suture passer. Abdomen was desufflated. The skin was then closed using 4-0 Monocryl in a subcuticular fashion. Surgical glue was applied. Needle and sponge counts were correct x 2. At this time the patient was awoken from anesthesia and extubated having remained stable throughout the entire case. The patient was then transported to PACU in stable condition. The physician medicine assistant was present and scrubbed for the entire case. He was essential in positioning prepping and draping the patient, driving the laparoscope, retraction and exposure, closure of the incisions and placement of the dressings. I attest to the content of the Intraoperative Record and any orders documented therein. Any exceptions are noted below.
[2021-05-16] MEDS: fentaNYL citrate 100 MCG/2 ML VIAL IV PRN ×2 (13:02→13:08)
[2021-05-16] MEDS ORDERED: MoRPHine SULFATE 4 MG/ML 1 ML CARP\\VIAL IV PRN (13:43)
[2021-05-16] MEDS: LACTATED RINGER'S 1,000 ML IV SCH ×2 (14:11→20:40)
[2021-05-16] MEDS: MoRPHine SULFATE 2 MG/ML CARP IV PRN ×2 (14:12→20:40)
--- NOTE | 2021-05-16 15:04 | Communication Note ---
Date of Service: May 16, 2021 I saw and evaluated the patient. Full note pending this afternoon. The patient presented with abdominal pain and was found to have elevated liver enzymes. She underwent cholecystectomy earlier today and was found to have evidence of a positive intraoperative cholangiogram. ERCP has been requested for biliary decompression and gallstone extraction. Physical examination Scleral icterus noted Impression: Patient is status post cholecystectomy for complications related to choledocholithiasis found to have a positive intraoperative cholangiogram. ERCP has been requested and arrangements will be made at the next available. I discussed the risks of the procedure with the patient and her family to include bleeding, infection, perforation, pancreatitis, failed biliary cannulation, need for follow-up studies, biliary stent placement and increased risk of PEP due to her young age and gender PLAN NPO ERCP being arranged (Procedure time is dependent on OR and Endoscopy availabiity)
--- NOTE | 2021-05-16 15:23 | Anesthesiology Progress Note ---
Date of Service May 16, 2021 Anesthesia Post Procedure Vital Signs Vital Signs: Temp Pulse Pulse Resp BP BP Pulse Ox 05/16/21 14:45 36.5 C 71 16 132/82 96 05/16/21 14:16 36.8 C 66 16 142/83 H 97 05/16/21 13:54 36.9 C 65 16 133/81 96 05/16/21 13:40 63 16 155/75 H 95 05/16/21 13:30 62 20 143/75 H 95 05/16/21 13:20 36.5 C 61 20 145/74 H 94 05/16/21 13:15 63 18 141/70 H 94 05/16/21 13:05 61 21 147/71 H 100 05/16/21 12:55 59 L 20 146/70 H 100 05/16/21 12:46 36.2 C L 73 18 147/89 H 99 05/16/21 09:19 36.8 C 69 18 110/70 99 05/16/21 07:26 36.7 C 45 L 16 103/57 L 96 05/15/21 22:29 36.6 C 64 16 110/69 96 Pain Intensity Abdomen: Pain Intensity: 4 Transfer of Care Handoff Completed per policy Notes Mental Status: alert / awake / arousable and participated in evaluation Patient Amnestic to Procedure: Yes Nausea / Vomiting: adequately controlled Pain: adequately controlled Airway Patency, RR, SpO2: stable & adequate BP & HR: stable & adequate Hydration State: stable & adequate Anesthetic Complications: no major complications apparent and Pt Satisfied with anesthetic care
--- NOTE | 2021-05-16 16:00 | Gastrointestinal Consultation ---
Date of Consultation May 16, 2021 Assessment & Plan (1) Choledocholithiasis: Plan for ERCP tomorrow. Procedure described including possible complications, need to return in approx 6 wks to remove stent if placed - by Dr. Luda Arambula, to pt and parents at the bedside. Pt and parents would like to go forward with the procedure. Please keep NPO after midnight. Further recommendations to follow ERCP. Supervising Physician Co-Signing Physician Notes I saw and evaluated the patient on May 16. She presented with abdominal pain and was found to have evidence of cholelithiasis. During cholecystectomy and i ntraoperative cholangiogram was performed notable for a stone in the distal common bile duct. ERCP has been requested by the surgical service for further management. Physical examination Overweight female in no obvious distress Mild scleral icterus noted Impression: Patient presented with cholelithiasis status post cholecystectomy found to have choledocholithiasis on intraoperative cholangiogram. We will plan for ERCP at next available which will be on Sunday. I have discussed the risks of the procedure with the patient and her family, these risks include bleeding, infection, perforation, pain, failed biliary cannulation, pancreatitis and need for follow-up studies. I have also discussed the increased risk of pancreatitis given the patient's young age and gender. Plan N.p.o. at midnight for ERCP tomorrow Call with any additional questions or concerns History of Present Illness Reason for Consultation: + IOC Requesting Physician: ROBYN MUNSON Dr. Case Attending Physician: Juana Mancilla MD History of Present Illness Ms. Gini Vee is a 20 yr old female [employer] student who presented to [facility] on 05/14 w reports of 3 days of ongoing upper abdomen pain. IMaging was consistent with gallstones and LFTs were elevated. She underwent lap cholecystetomy today with an IOC suggestive of choledocholithiasis and our group was asked to provide ERCP. She is seen and examined while she is resting in bed. She is awake, alert, oriented. She has moderate discomfort, having undergone surgery earlier today. Her parents are at the bedside as well. They are from [place]. Allergies Allergy/AdvReac Type Severity Reaction Status Date / Time No Known Allergies Allergy Unverified 05/14/21 22:10 Home Medications Medication Instructions Recorded Confirmed Type calcium carbonate 200 mg calcium 400 - 600 mg PO BID PRN 05/14/21 05/14/21 H istory (500 mg) chewable tablet (Tums) famotidine 20 mg tablet (Pepcid) 20 mg PO DAILY 05/14/21 05/14/21 History ondansetron HCl 4 mg tablet 4 mg PO Q6H PRN 05/14/21 05/14/21 History Patient History Medical History (Updated 05/16/21 @ 16:49 by Juana Mancilla MD) No significant past medical history Obesity Surgical History No significant past surgical history Family History Mother Gallbladder disease Social History Smoking Status: Never smoker Hx Alcohol Use: Yes Hx Substance Use: No Preferred Language: Nigerien Dry Press Operator Required: No Beliefs That Will Affect Care: None marital status: Single Current Living Situation: Other Current Living Situation Comment: Apartment- college current occupational status: student Feels Safe at Home: Yes Assistive Devices: None Results & Data ([facility]) Vital Signs (Past 12 Hours) Vital Signs Temp Pulse Pulse Resp BP BP Pulse Ox 05/16/21 15:43 37.0 C 74 14 126/77 94 05/16/21 14:45 36.5 C 71 16 132/82 96 05/16/21 14:16 36.8 C 66 16 142/83 H 97 05/16/21 13:54 36.9 C 65 16 133/81 96 05/16/21 13:40 63 16 155/75 H 95 05/16/21 13:30 62 20 143/75 H 95 05/16/21 13:20 36.5 C 61 20 145/74 H 94 05/16/21 13:15 63 18 141/70 H 94 05/16/21 13:05 61 21 147/71 H 100 05/16/21 12:55 59 L 20 146/70 H 100 05/16/21 12:46 36.2 C L 73 18 147/89 H 99 05/16/21 09:19 36.8 C 69 18 110/70 99 05/16/21 07:26 36.7 C 45 L 16 103/57 L 96 Laboratory Results WBC 2.9, Hb 11, Hct 34, Plts 322, Na 138, K 3.8, CL 106, CO2 23, BUN 8, Cr 0.79. AST 85, ALT 255, Alk Phos 120. Diagnostic Findings IOC 05/16/21: Filling defect at the ampulla most characteristic of choledocholithiasis. Marked spasm would also be in the differential diagnosis. US 05/14: Cholelithiasis with gallbladder wall thickening. While there was a negative sonographic Marshall sign, early acute cholecystitis cannot be excluded. If indicated clinically, hepatobiliary scan may be helpful for further evaluation MRCP 05/15 with gallstones in the gallbladder, no evidence of choledocholithiasis.
--- NOTE | 2021-05-16 16:44 | Hospitalist Progress Note ---
Date of Service May 16, 2021 Assessment & Plan (1) Cholecystitis with cholelithiasis: Plan: Presented with abdominal pain and Elevation of LFTs In an obstructive pattern Right upper quadrant ultrasoundPer stat readcholelithiasis. Equivocal sonographic findings for acute cholecystitis (thickened and heterogenous gallbladder wall measuring 0.4 cm in thickness with slightly increased internal vascular flow but negative Marshall sign). Mildly dilated visualized common bile duct with diameter of 0.7 cm. No choledocholithiasis or other obstructive lesion visualized in the current study. Normal visualized liver, pancreas, and right kidney. MRCP did not show obstructing stones But showed cholelithiasis s/p laparoscopic cholecystectomy on 05/16. Intraoperative cholangiogram was positive for choledocholithiasis LFTs trended slightly upward on 05/16 likely secondary to choledocholithiasis -Continue IV fluids -Plan for ERCP tomorrow, n.p.o. after midnight but can have clear liquids for now -Continue Zosyn Pain control -- tylenol/morphine prn ZOfran prn nausea (2) Nausea and vomiting: Plan: Now resolved (3) Elevated LFTs: Plan: As above, secondary to choledocholithiasis (4) Choledocholithiasis: Plan: As above (5) Obesity: Plan: BMI 35.7 Encourage low-fat diet Needs weight loss Plan: DVT prophylaxis-SCDs Disposition-continued stay medical/surgical floor for ERCP tomorrow, possibly discharge home tomorrow evening or the next day All her care was discussed with her parents at the bedside Admission and Anticipated Discharge Date Admission Date: May 15, 2021 Subjective Patient recently returned from cholecystectomy and has some bloating and abdominal pain and occasional sharp pains in the right shoulder. Otherwise doing okay. No nausea. Review of Systems Review of Systems: All systems reviewed & are unremarkable except as noted in HPI & below Physical Exam Constitutional: WD/WN, vitals as above + obese Eyes: + anicteric sclerae Neck: trachea midline, no thyromegaly Respiratory: normal respiratory effort, lungs clear to auscultation Cardiovascular: RRR, no murmur, no edema Chest (Breasts): Chest: normal inspection of chest Gastrointestinal (Abdomen): Inspection/Auscultation: normal bowel sounds; + abdomen abnormal to inspection (Multiple incisional wounds with dressings in place, epigastric bloodsoaked) Percussion/Palpation: + abdomen tender (Mild at incision sites) and abdomen soft; no guarding Musculoskeletal: Extremities: extremities normal to inspection; no cyanosis and no clubbing Skin: no rashes, warm and dry Neurologic: moves all extremities and awake; no focal motor deficits Psychiatric: A+Ox3, euthymic affect Lymphatic: no lymphedema Results & Data Results & Data ([facility]) Vital Signs (Past 12 Hours) Vital Signs Temp Pulse Pulse Resp BP BP Pulse Ox 05/16/21 15:43 37.0 C 74 14 126/77 94 05/16/21 14:45 36.5 C 71 16 132/82 96 05/16/21 14:16 36.8 C 66 16 142/83 H 97 05/16/21 13:54 36.9 C 65 16 133/81 96 05/16/21 13:40 63 16 155/75 H 95 05/16/21 13:30 62 20 143/75 H 95 05/16/21 13:20 36.5 C 61 20 145/74 H 94 05/16/21 13:15 63 18 141/70 H 94 05/16/21 13:05 61 21 147/71 H 100 05/16/21 12:55 59 L 20 146/70 H 100 05/16/21 12:46 36.2 C L 73 18 147/89 H 99 05/16/21 09:19 36.8 C 69 18 110/70 99 05/16/21 07:26 36.7 C 45 L 16 103/57 L 96 Laboratory Results 05/16/21 05/16/21 Range/Units 05:56 05:56 WBC 4.36 L (4.8-10.8) K/uL RBC 3.76 L (4.2-5.4) M/uL Hgb 11.4 L (12.0-16.0) g/dL Hct 34.6 L (37-47) % MCV 92.0 (80-100) fL MCH 30.3 (25-34) pg MCHC 32.9 (32-36) g/dL RDW Std Deviation 48.9 H (36.4-46.3) fL RDW Coeff of Jesu 14.4 (11.5-14.5) % Plt Count 322 (130-400) K/uL MPV 10.9 H (7.4-10.4) fL Immature Gran % (Auto) 0.2 % Neut % (Auto) 40.8 % Lymph % (Auto) 45.2 % Green % (Auto) 10.6 % Eos % (Auto) 2.5 % Baso % (Auto) 0.7 % Neut # (Auto) 1.78 (1.4-6.5) K/uL Lymph # (Auto) 1.97 (1.2-3.4) K/uL Green # (Auto) 0.46 (0.11-0.59) K/uL Eos # (Auto) 0.11 (0-0.5) K/uL Baso # (Auto) 0.03 (0-0.2) K/uL Immature Gran # (Auto) 0.01 (0.00-0.02) K/uL Sodium 138 (136-145) mmol/L Potassium 3.8 (3.5-5.1) mmol/L Chloride 106 (98-107) mmol/L Carbon Dioxide 23 (21-32) mmol/L Anion Gap 9 (3-11) BUN 8 (6-23) mg/dl Creatinine 0.79 (0.6-1.2) mg/dl Est Cr Clr Drug Dosing 148.7 ml/min Est GFR ( Amer) 124.0 ml/min Est GFR (Non-Af Amer) 107.0 ml/min BUN/Creatinine Ratio 10.1 (10-20) Glucose 91 (70-99(Fasting)) mg/dl Calcium 9.3 (8.5-10.1) mg/dl Total Bilirubin 2.9 H (0.2-1.0) mg/dl Direct Bilirubin 1.4 H (0-0.2) mg/dl AST 85 H (13-39) U/L ALT 255 H (7-52) U/L Alkaline Phosphatase 120 H (34-104) U/L Total Protein 6.8 (6.0-8.3) gm/dl Albumin 3.9 (3.4-5.0) gm/dl PG Care Time/CCT Total # of Minutes Spent Total Time Spent with Patient: Total time spent is greater than 50% in coordination of care (as documented) at patient's floor/unit and/or counseling patient: Coding Level of Care Code 40257 Subseq Hosp Care Lvl 2 Diagnoses Cholecystitis with cholelithiasis K80.01 Biliary obstruction: with biliary obstruction Cholecystitis acuity: acute Cholelithiasis location: gallbladder Nausea and vomiting R11.2 Vomiting type: unspecified Elevated LFTs R79.89 Choledocholithiasis K80.50 Obesity E66.9 (1) Cholecystitis with cholelithiasis Biliary obstruction: with biliary obstruction Cholecystitis acuity: acute Cholelithiasis location: gallbladder Qualified Code(s): K80.01 - Calculus of gallbladder with acute cholecystitis with obstruction (2) Nausea and vomiting Vomiting type: unspecified Qualified Code(s): R11.2 - Nausea with vomiting, unspecified
[2021-05-17] MEDS: PIPERACILLIN/TAZOBACTAM 3.375 GM in DEXTROSE 5% 100 ML IV SCH ×3 (02:23→18:10)
[2021-05-17] MEDS: MoRPHine SULFATE 2 MG/ML CARP IV PRN ×2 (02:25→06:16)
[2021-05-17] MEDS: LACTATED RINGER'S 1,000 ML IV SCH ×2 (03:12→05:51)
--- NOTE | 2021-05-17 07:58 | Surgery Progress Note ---
Date of Service May 17, 2021 Assessment & Plan (1) Elevated LFTs: Plan: POD 1 lap sujey + IOC labs pending ERCP today (2) Cholecystitis with cholelithiasis: Admission and Anticipated Discharge Date Admission Date: May 15, 2021 Supervising Physician Co-Signing Physician Notes I personally saw and evaluated the patient with Gomez Ojeda PA-C and agree with the assessment and plan. 20-year-old female postoperative day 1 laparoscopic cholecystectomy with intraoperative cholangiogram, choledocholithiasis She is doing well postoperatively Scheduled for an ERCP with GI today We will follow Subjective some shoulder pain, no nausea had clears last night, some soreness at epigastric incision Physical Exam Gastrointestinal (Abdomen): Inspection/Auscultation: + abdominal surgical incision (dressings intact) Percussion/Palpation: abdomen soft Results & Data ([facility]) Vital Signs (Past 12 Hours) Vital Signs Temp Pulse Resp BP Pulse Ox 05/17/21 02:45 37 C 59 L 16 96/64 L 97 05/16/21 22:30 37.2 C 54 L 16 96/62 L 97 PG Care Time/CCT Total # of Minutes Spent Total Time Spent with Patient: Total time spent is greater than 50% in coordination of care (as documented) at patient's floor/unit and/or counseling patient: Coding Level of Care Code None Diagnoses Elevated LFTs R79.89 Cholecystitis with cholelithiasis K80.01 Biliary obstruction: with biliary obstruction Cholecystitis acuity: acute Cholelithiasis location: gallbladder (1) Cholecystitis with cholelithiasis Biliary obstruction: with biliary obstruction Cholecystitis acuity: acute Cholelithiasis location: gallbladder Qualified Code(s): K80.01 - Calculus of gallbladder with acute cholecystitis with obstruction
[2021-05-17 08:47] LABS: Basophils # (auto) 0.01 K/uL (0-0.2); Basophils % (auto) 0.1 %; Eosinophils # (auto) 0.05 K/uL (0-0.5); Eosinophils % (auto) 0.6 %; Hematocrit (blood only) 33.6 % (37-47); Immature Granulocytes # (auto) 0.01 K/uL (0.00-0.02); Immature Granulocytes % (auto) 0.1 %; Lymphocytes # (auto) 2.18 K/uL (1.2-3.4); Lymphocytes % (auto) 27.2 %; Mean Corpuscular Hemoglobin 29.8 pg (25-34); Mean Corpuscular Hgb Conc 32.7 g/dL (32-36); Mean Corpuscular Volume 91.1 fL (80-100); Mean Platelet Volume 10.7 fL (7.4-10.4); Neutrophils # (auto) 4.97 K/uL (1.4-6.5); Platelet Count 326 K/uL (130-400); RDW Coefficient of Variation 14.5 % (11.5-14.5); RDW Standard Deviation 48.6 fL (36.4-46.3); Red Blood Count 3.69 M/uL (4.2-5.4); White Blood Count 8.02 K/uL (4.8-10.8)
[2021-05-17 09:18] LABS: Albumin Level 3.8 gm/dl (3.4-5.0); BUN Creatinine Ratio 11.3 (10-20); Bilirubin Direct 0.5 mg/dl (0-0.2); Bilirubin,Total 1.5 mg/dl (0.2-1.0); Calcium 9.2 mg/dl (8.5-10.1); Creatinine Clr Calc Pharmacy 146.8 ml/min; Est GFR (African American) 122.2 ml/min; Est GFR (Non-African American) 105.4 ml/min; Magnesium 1.9 mg/dl (1.7-2.4); Potassium 3.5 mmol/L (3.5-5.1); Total Protein 6.5 gm/dl (6.0-8.3)
--- NOTE | 2021-05-17 12:43 | Anesthesiology Consultation ---
Date of Service May 17, 2021 Assessment & Plan (1) Choledocholithiasis: (2) Encounter for pre-operative examination: Chart Review Chart Review: Acceptable Risk for Surgery History Surgery Operation Date: 05/16/21 08:10 Proposed Procedures p Laparoscopic Cholecystectomy Possible Open Possible Cholangiogram - Chay Rodriguez DO Operation Date: 05/17/21 07:00 Proposed Procedures p Endoscopic Retrograde Cholangiopancreato - Luda Arambula DO Height/Weight Height: 5 ft 9 in Weight: 109.7 kg Allergies Allergy/AdvReac Type Severity Reaction Status Date / Time No Known Allergies Allergy Unverified 05/14/21 22:10 Medications Home Medications Medication Instructions Recorded Confirmed Last Taken calcium carbonate 200 mg calcium 400 - 600 mg PO BID PRN 05/14/21 05/14/21 Unknown (500 mg) chewable tablet (Tums) famotidine 20 mg tablet (Pepcid) 20 mg PO DAILY 05/14/21 05/14/21 Unknown ondansetron HCl 4 mg tablet 4 mg PO Q6H PRN 05/14/21 05/14/21 Unknown Active Medications Generic Name Dose Route Start Last Admin Trade Name Freq PRN Reason Stop Dose Admin Piperacillin Sod/Tazobactam 115 mls @ 28.75 mls/hr 05/15/21 10:00 05/17/21 09:45 Sod 3.375 gm/ Dextrose IV 05/25/21 09:59 28.8 mls/hr Q8H LETICIA Administration Protocol Lactated Ringer's 1,000 mls @ 125 mls/hr 05/16/21 09:15 05/17/21 05:51 Lr IV 06/15/21 09:14 125 mls/hr .Q8H LETICIA Administration Morphine Sulfate 2 mg 05/16/21 13:43 05/17/21 06:16 Morphine Sulfate 2 Mg/Ml Carp IV 05/30/21 13:42 2 mg Q1H PRN Administration Pain NPO Date Last Intake of Fluids: 05/16/21 Time Last Intake of Fluids: 23:30 Date Last Intake of Solids: 05/13/21 Time Last Intake of Solids: 12:00 Past Medical History Medical History (Updated 05/17/21 @ 12:43 by Gomez Sanon MD) Choledocholithiasis Obesity Past Family History Family History Mother Gallbladder disease Past Surgical History Surgical History (Updated 05/17/21 @ 12:41 by Gomez Sanon MD) Hx laparoscopic cholecystectomy Social History Smoking Status: Never smoker Hx Alcohol Use: Yes alcohol intake frequency: a few times a week Hx Substance Use: No Physical Exam Vital Signs Last Vital Signs Temp 36.7 C 05/17/21 08:08 Pulse 52 L 05/17/21 08:08 Resp 16 05/17/21 08:08 BP 120/75 05/17/21 08:08 Pulse Ox 95 05/17/21 08:08 Testing Laboratory Results 05/17/21 08:31 05/17/21 08:31 PT 10.9 Seconds (9.0-12.0) 05/14/21 20:46 INR 1.0 (0.9-1.1) 05/14/21 20:46 APTT 26.1 Seconds (21.0-31.0) 05/14/21 20:46 05/14/21 20:57 POC Ur Test NEG
--- NOTE | 2021-05-17 13:08 | History & Physical Bridge Note ---
Date of Service May 17, 2021 History & Physical Bridge Note I have examined the patient, reviewed the History & Physical and in the interval since the performance of the History & Physical I have noted the following changes of clinical significance: no changes noted. I discussed the risks of the procedure to include bleeding, infection, perforation, pain, pancreatitis and failed cannulation.
[2021-05-17] MEDS ORDERED: INDOMETHACIN 50 MG SUPP PR ONE (13:09)
[2021-05-17] MEDS ORDERED: MIDAZOLAM HCL 1 MG/ML 2ML VIAL ONE (13:18)
[2021-05-17] MEDS ORDERED: fentaNYL citrate 100 MCG/2 ML VIAL ONE (13:18)
[2021-05-17] MEDS ORDERED: LIDOCAINE 2% 2 ML VIAL/AMP(20MG/ML) INFIL ONE (13:50)
[2021-05-17] MEDS ORDERED: DEXAMETHASONE SOD INJ 4 MG/ML VIAL ONE (13:50)
[2021-05-17] MEDS ORDERED: PROPOFOL IV EMULSION 10 MG/ML 20 ML VIAL IV ONE (13:50)
[2021-05-17] MEDS ORDERED: ONDANSETRON INJ 2 MG/ML 2 ML VIAL ONE (13:50)
--- NOTE | 2021-05-17 14:03 | GI REPORT ---
Patient Name: Gini Vee Procedure Date: 05/17/2021 1:36 PM Date of : 2000 Admit Type: Inpatient Age: 20 Gender: Female Attending MD: Luda Arambula DO Procedure: ERCP Providers: Luda Arambula DO Referring MD: Juana Mancilla Md, Chay Rodriguez Do Indications: Abdominal pain of suspected biliary origin, Filling defect on intraoperative cholangiogram Medicines: General Anesthesia Complications: No immediate complications. Estimated blood loss: Minimal. Estimated Blood Loss: Estimated blood loss was minimal. Procedure: Pre-Anesthesia Assessment: - Prior to the procedure, a History and Physical was performed, and patient medications, allergies and sensitivities were reviewed. The patient's tolerance of previous anesthesia was reviewed. - The risks and benefits of the procedure and the sedation options and risks were discussed with the patient. All questions were answered and informed consent was obtained. - Patient identification and proposed procedure were verified prior to the procedure by the physician, the nurse and the production quality manager. The procedure was verified in the procedure room. - Pre-procedure physical examination revealed no contraindications to sedation. - ASA Grade Assessment: II - A patient with mild systemic disease. - After reviewing the risks and benefits, the patient was deemed in satisfactory condition to undergo the procedure. - The anesthesia plan was to use general anesthesia. - Immediately prior to administration of medications, the patient was re-assessed for adequacy to receive sedatives. - The heart rate, respiratory rate, oxygen saturations, blood pressure, adequacy of pulmonary ventilation, and response to care were monitored throughout the procedure. - The physical status of the patient was re-assessed after the procedure. After obtaining informed consent, the scope was passed under direct vision. Throughout the procedure, the patient's blood pressure, pulse, and oxygen saturations were monitored continuously. The Duodenoscope was introduced through the mouth, and advanced to the duodenum and used to inject contrast into the bile duct. The ERCP was accomplished without difficulty. The patient tolerated the procedure well. Findings: A football scout film of the abdomen was obtained. Surgical clips, consistent with a previous cholecystectomy, were seen in the area of the right upper quadrant of the abdomen. The esophagus was successfully intubated under direct vision without detailed examination of the pharynx, larynx, and associated structures, and upper GI tract. The upper GI tract was grossly normal. The major papilla was normal. The bile duct was deeply cannulated with the short-nosed traction sphincterotome and an angled 0.035 in Acrobat 2 guidewire. Contrast was injected. I personally interpreted the bile duct images. Contrast to the hepatic ducts. A cholecystectomy had been performed. The lower third of the main bile duct contained filling defect(s) thought to be a stone. Biliary sphincterotomy was made with a Fusion OMNI sphincterotome using ERBE electrocautery. There was no post-sphincterotomy bleeding. To discover objects, the biliary tree was swept with a 12 mm balloon starting at the bifurcation. Two stones were removed. No stones remained. The total fluoroscopy exposure time was 27 seconds. Indomethacin 100 mg was given via suppository to decrease the risk of post-ERCP pancreatitis (PEP). The endoscope was withdrawn from the patient. Impression: - The major papilla appeared normal. - A filling defect consistent with a stone was seen on the cholangiogram. - The patient has had a cholecystectomy. - Choledocholithiasis was found. Complete removal was accomplished by biliary sphincterotomy and balloon extraction. - A biliary sphincterotomy was performed. - The biliary tree was swept. - Indomethacin given to decrease risk of post-ERCP pancreatitis. Recommendation: - Avoid aspirin and nonsteroidal anti-inflammatory medicines for 1 week. - Clear liquid diet today. - Observe patient's clinical course. Luda Arambula D.O. Luda Arambula, 05/17/2021 2:03:28 PM This report has been signed electronically. Note Initiated On: 05/17/2021 1:36 PM Number of Addenda: 0 I attest to the content of the Intraoperative Record and orders documented therein, exceptions below {[id number]}
--- NOTE | 2021-05-17 14:04 | Post Operative Brief Note ---
Immediate Post Op Note v1 Date of Surgery May 17, 2021 Pre & Post Diagnosis Operation Date: 05/16/21 08:10 Operation Date: 05/17/21 07:00 Pre-Op Diagnosis: Gallstones Post-Op Diagnosis: CBD stones I identified the patient and participated in the time-out.: Yes Procedure Operation Date: 05/17/21 07:00 Actual Procedures p Endoscopic Retrograde Cholangiopancreatography(Not Applicable) - Luda Arambula DO Surgeon Luda Arambula DO Shirt Folder Gomez Ojeda PA-C Estimated Blood Loss 0 Findings Consistent with Post-Op Diagnosis Anesthesia Type General
--- NOTE | 2021-05-17 14:11 | Communication Note ---
Date of Service: May 17, 2021 Patient underwent ERCP with a biliary sphincterotomy and gallstone extraction (2). Recomendations: May have clears today Continue IV hydration overnight Avoid NSAID for 1 week Please call for questions or concerns
--- NOTE | 2021-05-17 14:39 | Anesthesiology Progress Note ---
Date of Service May 17, 2021 Anesthesia Post Procedure Vital Signs Vital Signs: Temp Pulse Pulse Resp BP Pulse Ox 05/17/21 14:30 36.9 C 46 L 14 126/73 95 05/17/21 14:20 58 L 17 139/84 96 05/17/21 14:10 61 18 137/80 100 05/17/21 14:04 36.2 C L 71 16 137/93 98 05/17/21 12:30 37 C 55 L 20 145/92 H 99 05/17/21 08:08 36.7 C 52 L 16 120/75 95 05/17/21 02:45 37 C 59 L 16 96/64 L 97 05/16/21 22:30 37.2 C 54 L 16 96/62 L 97 05/16/21 19:26 36.8 C 74 16 115/71 96 05/16/21 16:45 36.7 C 80 16 118/74 94 05/16/21 15:43 37.0 C 74 14 126/77 94 05/16/21 14:45 36.5 C 71 16 132/82 96 Pain Intensity Abdomen: Pain Intensity: 0 Transfer of Care Handoff Completed per policy Notes Mental Status: alert / awake / arousable Patient Amnestic to Procedure: Yes Nausea / Vomiting: adequately controlled Pain: adequately controlled Airway Patency, RR, SpO2: stable & adequate BP & HR: stable & adequate Hydration State: stable & adequate Anesthetic Complications: no major complications apparent
--- NOTE | 2021-05-17 15:05 | Fluoroscopy Report ---
[place] ERCP biliary ductal HISTORY: 20 years-old Female ERCP intraoperative cholangiogram COMPARISON: Cholangiogram images 05/16/2021, MRCP 05/15/2021 TECHNIQUE: 22 spot fluoroscopic images of the abdomen were obtained utilizing 27.8 seconds fluoroscop y time FINDINGS: Endoscope is noted within the duodenum. Cholecystectomy clips. Cannulation of the common bile duct wi th retrograde injection of contrast. The opacified biliary tree demonstrates no filling defects, stri ctures or high-grade stenoses. There is apparent balloon sweep of the common bile duct. IMPRESSION: Fluoroscopic assistance as above. ACT 112: Negative or not required by law. The above report was generated using voice recognition software. It may contain grammatical, syntax o r spelling errors. Electronically signed by: Ketan Gann M.D. 05/17/2021 3:02 PM
--- NOTE | 2021-05-17 15:55 | Hospitalist Progress Note ---
Date of Service May 17, 2021 Assessment & Plan (1) Cholecystitis with cholelithiasis: Plan: Presented with abdominal pain and Elevation of LFTs In an obstructive pattern Right upper quadrant ultrasoundPer stat readcholelithiasis. Equivocal sonographic findings for acute cholecystitis (thickened and heterogenous gallbladder wall measuring 0.4 cm in thickness with slightly increased internal vascular flow but negative Marshall sign). Mildly dilated visualized common bile duct with diameter of 0.7 cm. No choledocholithiasis or other obstructive lesion visualized in the current study. Normal visualized liver, pancreas, and right kidney. MRCP did not show obstructing stones But showed cholelithiasis s/p laparoscopic cholecystectomy on 05/16. Intraoperative cholangiogram was positive for choledocholithiasis LFTs trended slightly upward on 05/16 likely secondary to choledocholithiasis Now s/p ERCP 05/17 with CBD stones removed and sphincterotomy performed Avoid NSAIDs for 1 week-through 4/5 Clear liquid today and advance tomorrow as tolerated -Continue IV fluids -Continue Zosyn Pain control -- tylenol/morphine prn ZOfran prn nausea follow LFTs in AM (2) Nausea and vomiting: Plan: Now resolved (3) Elevated LFTs: Plan: As above, secondary to choledocholithiasis (4) Choledocholithiasis: Plan: As above (5) Obesity: Plan: BMI 35.7 Encourage low-fat diet Needs weight loss Plan: DVT prophylaxis-SCDs Disposition-continued stay medical/surgical floor ,likely discharge home tomorrow if continues to improve and tolerating diet Admission and Anticipated Discharge Date Admission Date: May 15, 2021 Subjective Feelin gmuch better now s/p ERCP. Mild abd pain. No nausea. Feeling thirsty. No other concerns Review of Systems Review of Systems: All systems reviewed & are unremarkable except as noted in HPI & below Physical Exam Constitutional: WD/WN, vitals as above Eyes: + anicteric sclerae Neck: trachea midline, no thyromegaly Respiratory: normal respiratory effort, lungs clear to auscultation Cardiovascular: RRR, no murmur, no edema Chest (Breasts): Chest: normal inspection of chest Gastrointestinal (Abdomen): Inspection/Auscultation: + abdomen abnormal to inspection (incision sites c/d/i) and abdomen not distended Percussion/Palpation: abdomen soft; abdomen nontender Musculoskeletal: Extremities: extremities normal to inspection; no cyanosis and no clubbing Skin: no rashes, warm and dry Neurologic: moves all extremities and awake; no focal motor deficits Psychiatric: A+Ox3, euthymic affect Lymphatic: no lymphedema Results & Data Results & Data ([facility]) Vital Signs (Past 12 Hours) Vital Signs Temp Pulse Pulse Resp BP Pulse Ox 05/17/21 15:38 43 L 16 125/75 95 05/17/21 15:00 37.0 C 49 L 16 125/84 94 05/17/21 14:30 36.9 C 46 L 14 126/73 95 05/17/21 14:20 58 L 17 139/84 96 05/17/21 14:10 61 18 137/80 100 05/17/21 14:04 36.2 C L 71 16 137/93 98 05/17/21 12:30 37 C 55 L 20 145/92 H 99 05/17/21 08:08 36.7 C 52 L 16 120/75 95 Laboratory Results 05/17/21 05/17/21 Range/Units 08:31 08:31 WBC 8.02 (4.8-10.8) K/uL RBC 3.69 L (4.2-5.4) M/uL Hgb 11.0 L (12.0-16.0) g/dL Hct 33.6 L (37-47) % MCV 91.1 (80-100) fL MCH 29.8 (25-34) pg MCHC 32.7 (32-36) g/dL RDW Std Deviation 48.6 H (36.4-46.3) fL RDW Coeff of Jesu 14.5 (11.5-14.5) % Plt Count 326 (130-400) K/uL MPV 10.7 H (7.4-10.4) fL Immature Gran % (Auto) 0.1 % Neut % (Auto) 62.0 % Lymph % (Auto) 27.2 % [place] % (Auto) 10.0 % Eos % (Auto) 0.6 % Baso % (Auto) 0.1 % Neut # (Auto) 4.97 (1.4-6.5) K/uL Lymph # (Auto) 2.18 (1.2-3.4) K/uL [place] # (Auto) 0.80 H (0.11-0.59) K/uL Eos # (Auto) 0.05 (0-0.5) K/uL Baso # (Auto) 0.01 (0-0.2) K/uL Immature Gran # (Auto) 0.01 (0.00-0.02) K/uL Sodium 139 (136-145) mmol/L Potassium 3.5 (3.5-5.1) mmol/L Chloride 106 (98-107) mmol/L Carbon Dioxide 25 (21-32) mmol/L Anion Gap 8 (3-11) BUN 9 (6-23) mg/dl Creatinine 0.80 (0.6-1.2) mg/dl Est Cr Clr Drug Dosing 146.8 ml/min Est GFR ( Amer) 122.2 ml/min Est GFR (Non-Af Amer) 105.4 ml/min BUN/Creatinine Ratio 11.3 (10-20) Glucose 87 (70-99(Fasting)) mg/dl Calcium 9.2 (8.5-10.1) mg/dl Magnesium 1.9 (1.7-2.4) mg/dl Total Bilirubin 1.5 H (0.2-1.0) mg/dl Direct Bilirubin 0.5 H (0-0.2) mg/dl AST 82 H (13-39) U/L ALT 224 H (7-52) U/L Alkaline Phosphatase 113 H (34-104) U/L Total Protein 6.5 (6.0-8.3) gm/dl Albumin 3.8 (3.4-5.0) gm/dl PG Care Time/CCT Total # of Minutes Spent Total Time Spent with Patient: Total time spent is greater than 50% in coordination of care (as documented) at patient's floor/unit and/or counseling patient: Coding Level of Care Code 82669 Subseq Hosp Care Lvl 2 Diagnoses Cholecystitis with cholelithiasis K80.01 Biliary obstruction: with biliary obstruction Cholecystitis acuity: acute Cholelithiasis location: gallbladder Nausea and vomiting R11.2 Vomiting type: unspecified Elevated LFTs R79.89 Choledocholithiasis K80.50 Obesity E66.9 (1) Cholecystitis with cholelithiasis Biliary obstruction: with biliary obstruction Cholecystitis acuity: acute Cholelithiasis location: gallbladder Qualified Code(s): K80.01 - Calculus of gallbladder with acute cholecystitis with obstruction (2) Nausea and vomiting Vomiting type: unspecified Qualified Code(s): R11.2 - Nausea with vomiting, unspecified
[2021-05-18] MEDS: LACTATED RINGER'S 1,000 ML IV SCH ×3 (01:53→09:27)
[2021-05-18] MEDS: PIPERACILLIN/TAZOBACTAM 3.375 GM in DEXTROSE 5% 100 ML IV SCH ×2 (01:53→08:52)
[2021-05-18 07:57] LABS: Basophils # (auto) 0.01 K/uL (0-0.2); Basophils % (auto) 0.1 %; Eosinophils # (auto) 0.03 K/uL (0-0.5); Eosinophils % (auto) 0.4 %; Hematocrit (blood only) 32.5 % (37-47); Hemoglobin 10.9 g/dL (12.0-16.0); Immature Granulocytes # (auto) 0.01 K/uL (0.00-0.02); Immature Granulocytes % (auto) 0.1 %; Lymphocytes % (auto) 34.4 %; Mean Corpuscular Hemoglobin 30.2 pg (25-34); Mean Corpuscular Hgb Conc 33.5 g/dL (32-36); Monocytes # (auto) 0.45 K/uL (0.11-0.59); Monocytes % (auto) 6.5 %; Neutrophils # (auto) 4.07 K/uL (1.4-6.5); Neutrophils % (auto) 58.5 %; Platelet Count 287 K/uL (130-400); RDW Coefficient of Variation 13.8 % (11.5-14.5); RDW Standard Deviation 45.5 fL (36.4-46.3); Red Blood Count 3.61 M/uL (4.2-5.4); White Blood Count 6.97 K/uL (4.8-10.8)
[2021-05-18 08:28] LABS: Albumin Globulin Ratio 1.3 (0.9-2); Albumin Level 3.7 gm/dl (3.4-5.0); BUN Creatinine Ratio 12.5 (10-20); Bilirubin,Total 1.1 mg/dl (0.2-1.0); Creatinine Clr Calc Pharmacy 163.1 ml/min; Est GFR (African American) 138.7 ml/min; Est GFR (Non-African American) 119.7 ml/min; Globulin 2.9 gm/dl (2.5-4.0); Potassium 3.6 mmol/L (3.5-5.1); Total Protein 6.6 gm/dl (6.0-8.3)
--- NOTE | 2021-05-18 08:58 | Surgery Progress Note ---
Date of Service May 18, 2021 Assessment & Plan (1) Elevated LFTs: Plan: POD 2 lap sujey POD 1 ERCP LFTs improving advance diet, d/c later today (2) Cholecystitis with cholelithiasis: Admission and Anticipated Discharge Date Admission Date: May 17, 2021 Supervising Physician Co-Signing Physician Notes I personally saw and evaluated the patient with Gomez Ojeda PA-C and agree with the assessment and plan. 20-year-old female postoperative day 2 laparoscopic cholecystectomy with intraoperative cholangiogram, choledocholithiasis s/p ERCP yesterday Advance diet as tolerated She is stable for d/c from surgical standpoint F/u with me in 2 weeks Subjective shoulder pain resolved after ERCP, tolerating clears Physical Exam Gastrointestinal (Abdomen): Inspection/Auscultation: abdomen not distended Percussion/Palpation: abdomen soft Results & Data ([facility]) Vital Signs (Past 12 Hours) Vital Signs Temp Pulse Pulse Resp BP Pulse Ox 05/18/21 07:41 36.8 C 60 18 133/83 97 05/18/21 03:30 36.7 C 48 L 18 137/85 96 PG Care Time/CCT Total # of Minutes Spent Total Time Spent with Patient: Total time spent is greater than 50% in coordination of care (as documented) at patient's floor/unit and/or counseling patient: Coding Level of Care Code None Diagnoses Elevated LFTs R79.89 Cholecystitis with cholelithiasis K80.01 Biliary obstruction: with biliary obstruction Cholecystitis acuity: acute Cholelithiasis location: gallbladder (1) Cholecystitis with cholelithiasis Biliary obstruction: with biliary obstruction Cholecystitis acuity: acute Cholelithiasis location: gallbladder Qualified Code(s): K80.01 - Calculus of gallbladder with acute cholecystitis with obstruction
--- NOTE | 2021-05-18 11:06 | Gastroenterology Progress Note ---
Date of Service May 18, 2021 Assessment & Plan (1) Choledocholithiasis: (2) Hx laparoscopic cholecystectomy: Plan: Pt is a 20 yo female w hx of cholecystitis, cholelithiasis, choledocholithiasis s/p lap sujey 05/16, then ERCP w biliary sphincterectomy and choledocholithiasis removal 05/17. Doing well, LFTs improving - Regular diet per Surgery - Monitor LFTs - Symptomatic management - Avoid NSAIDs 1 week after sphincterectomy - GI sign off; pls recall prn Admission and Anticipated Discharge Date Admission Date: May 17, 2021 Supervising Physician Co-Signing Physician Notes Saw and evaluated the patient. She underwent ERCP with extraction of 2 gallstones yesterday. The patient appears to be doing well this morning and is having her diet advanced by general surgery. The patient will follow up with gastroenterology as needed. Recommendations Advance diet as tolerated Avoid Use of nonsteroidals for 1 week please Subjective Pt denies abd pain, n/v, tolerating solid meals well. Is passing flatus, no BMs, mild bloating Review of Systems Review of Systems: All systems reviewed & are unremarkable except as noted in HPI & below Constitutional: as per Subjective / HPI Physical Exam Constitutional: WD/WN, vitals as above well groomed, cooperative and comfortable Eyes: PERRL, conjunctivae normal, anicteric sclerae ENMT: external ear and nose normal, oropharynx normal Respiratory: normal respiratory effort, lungs clear to auscultation Cardiovascular: RRR, no murmur, no edema Gastrointestinal (Abdomen): normal bowel sounds, soft, nontender, no hepatosplenomegaly surgical sites covered w gauze CDI Skin: no rashes, warm and dry no jaundice Neurologic: Motor/Sensory: no asterixis Psychiatric: A+Ox3, euthymic affect Lymphatic: no lymphedema Results & Data ([facility]) Vital Signs (Past 12 Hours) Vital Signs Temp Pulse Pulse Resp BP Pulse Ox 05/18/21 07:41 36.8 C 60 18 133/83 97 05/18/21 03:30 36.7 C 48 L 18 137/85 96
--- NOTE | 2021-05-18 12:32 | Discharge Summary ---
Date of Service date of admission - May 15, 2021 date of discharge - May 18, 2021 Admission HPI Per Admitting Provider Gini Vee is a pleasant 20yo female with no significant past medical or surgical history presenting with three days of abdominal discomfort. Pain is mostly post-prandial, located in RUQ, upper abdomen, chest and right shoulder. She has associated nausea with several episodes of non-bloody/non-bilious vomiting. Her pain is resolved with vomiting. No fever, chills, cough, SOB, diarrhea, dysuria No additional complaints at this time Patient afebrile, HD stable in the ER ER Course: NSS Principal Diagnosis 1. choledocholithiasis s/p ERCP with stone extraction 2. acute cholecystitis s/p laparoscopic cholecystectomy Discharge Exam gen - NAD, obese eyes - no icterus mouth - MMM heart - RRR, s1 s2, no murmur lungs - CTA b/l abd - soft, mildly distended, BS+, dressings intact abdominal wall, no HSM ext - no edema, pulses 2+ b/l Discharge Data Allergies Allergy/AdvReac Type Severity Reaction Status Date / Time No Known Allergies Allergy Unverified 05/14/21 22:10 Consultations General Surgery - Dr Chay Rodriguez [facility] Gastroenterology - Dr Luda Armabula Procedures Performed Operation Date: 05/16/21 08:10 Actual Procedures p Laparoscopic Cholecystectomy with Cholangiogram - Chay Rodriguez DO Operation Date: 05/17/21 07:00 Actual Procedures p Endoscopic Retrograde Cholangiopancreatography - Luda Arambula DO Ordered Studies 05/17/21 13:00 FL ERCP biliary ductal Routine Chest/Abdomen X-ray 05/14/21 20:38 XR abdomen 2V w PA chest CLINICAL HISTORY: Abd/chest pain. COMPARISON STUDY: No previous studies for comparison. TECHNIQUE: Single view of the chest. Supine and upright views of the abdomen. FINDINGS: Single frontal view of the chest demonstrates the cardiomediastinal silhouette to be within normal limits. The lungs are clear of acute alveolar opacities. There is no evidence for pleural effusion. There is no evidence for vascular congestion. There is no acute osseous pathology. Abdomen: There is no free air or significant air-fluid levels present. The bowel gas pattern is within normal limits without evidence for dilatation or obstruction. There is no evidence for organomegaly or gross intra-abdominal mass. No abnormal calcifications are seen along the course of the urinary tracts bilaterally. No acute osseous pathology. IMPRESSION: 1. No acute intra-abdominal or chest abnormality. ACT 112: Negative or not required by law. Electronically signed by: Jareth Hernandez M.D. 05/15/2021 8:03 AM Abdomen Ultrasound 05/14/21 21:53 US abdomen limited CLINICAL HISTORY: RUQ/epigastric pain. COMPARISON: None. TECHNIQUE: Multiple grayscale and color images of the right upper quadrant of the abdomen. FINDINGS: Pancreas: The pancreas is within normal limits with no focal mass or peripancreatic fluid collection identified. Liver: The liver is homogeneous in echogenicity There is no evidence for a focal mass. There is no intrahepatic biliary duct dilatation. Gallbladder: The gallbladder is well distended with cholelithiasis. Posterior acoustic shadowing is demonstrated. There is mild wall thickening measuring 4 mm. No pericholecystic edema is seen. There was reportedly a negative sonographic Marshall sign. Common Bile Duct: (CBD): It is at the upper limits of normal in size measuring 7 mm Inferior Vena Cava (IVC): The imaged IVC is patent. Right kidney: There is no evidence for hydronephrosis, calculus or gross renal mass. The kidney is normal in size. It measures 10.2 cm in greatest length. IMPRESSION: 1. Cholelithiasis with gallbladder wall thickening. While there was a negative sonographic Marshall sign, early acute cholecystitis cannot be excluded. If indicated clinically, hepatobiliary scan may be helpful for further evaluation. ACT 112: Negative or not required by law. Electronically signed by: Jareth Hernandez M.D. 05/15/2021 8:25 AM Cholangiopancreatography MRI 05/15/21 08:42 MR MRCP CLINICAL HISTORY: abnormal LFTs, ?choledocholithiasis TECHNIQUE: Multiplanar multisequence MR images of the abdomen were obtained, as per MRCP protocol. This protocol consists of 3 plane localizer images, axial T1, axial T2, axial T2 fat saturated, coronal T2, MRCP single and MRCP volume sequences of the abdomen were obtained, without intravenous contrast. 1 mg of intramuscular glucagon was administered.. COMPARISON: None available at the time of this dictation. FINDINGS: Lower chest: No acute abnormality Liver: Unremarkable. No focal lesions are seen. Gallbladder and biliary tree: Multiple stones are seen in the gallbladder. No gallbladder wall thickening is seen. No pericholecystic edema. No intra- or extrahepatic biliary ductal dilation. The common bile duct measures 5 mm in diameter. No evidence of choledocholithiasis is seen. Pancreas: Unremarkable, no focal lesions. Spleen: Unremarkable. Adrenals: Unremarkable. Kidneys and ureters: Unremarkable. Bowel: Unremarkable. Lymph nodes Retroperitoneal: Unremarkable. Mesenteric: Unremarkable. Peritoneum: Normal Vessels: Unremarkable. Abdominal wall: Unremarkable. Bones: Minimal degenerative changes are seen in the spine. IMPRESSION: Cholelithiasis without evidence of cholecystitis or choledocholithiasis. ACT 112: Negative or not required by law. Electronically signed by: Patricio Raygoza M.D. 05/15/2021 10:15 AM Cholangiogram,Operative 05/16/21 08:00 [place] cholangiogram OR CLINICAL HISTORY: CHOLANGIOGRAM COMPARISON STUDY: No previous studies for comparison. FLUOROSCOPY TIME: 2 seconds. FLUOROSCOPIC IMAGES: 3 FINDINGS: Intraoperative cholangiogram was performed. A catheter is seen in the cystic duct. There is filling of the cystic duct, common bile duct and intrahepatic biliary duct radicles. There is no extravasation of contrast into the duodenum with what appears to be a filling defect at the ampulla. This would correspond with choledocholithiasis. The presence of marked spasm cannot be excluded but is less likely. IMPRESSION: Filling defect at the ampulla most characteristic of choledocholithiasis. Marked spasm would also be in the differential diagnosis. Please see intraoperative report. ACT 112: Negative or not required by law. Electronically signed by: Jareth Hernandez M.D. 05/16/2021 12:20 PM Endo Retro Cholangiopancreatogram 05/17/21 13:00 [place] ERCP biliary ductal HISTORY: 20 years-old Female ERCP intraoperative cholangiogram COMPARISON: Cholangiogram images 05/16/2021, MRCP 05/15/2021 TECHNIQUE: 22 spot fluoroscopic images of the abdomen were obtained utilizing 27.8 seconds fluoroscopy time FINDINGS: Endoscope is noted within the duodenum. Cholecystectomy clips. Cannulation of the common bile duct with retrograde injection of contrast. The opacified biliary tree demonstrates no filling defects, strictures or high-grade stenoses. There is apparent balloon sweep of the common bile duct. IMPRESSION: Fluoroscopic assistance as above. ACT 112: Negative or not required by law. The above report was generated using voice recognition software. It may contain grammatical, syntax or spelling errors. Electronically signed by: Ketan Gann M.D. 05/17/2021 3:02 PM Hospital Course (1) Cholecystitis with cholelithiasis: Patient presented with abdominal pain and elevation of her LFTs in an obstructive pattern. She underwent RUQ ultrasound verifying gallstones but only equivocal sonographic findings for acute cholecystitis. MRCP did not show CBD stones or cholecystitis but showed cholelithiasis. [id number]-[id number], given her clinical presentation and abnormal LFTs, it was still suspected she had acute cholecystitis. She was placed on broad-spectrum IV antibiotics on day of admission. [facility] was consulted, and on 05/16/21 Dr Chay Rodriguez performed laparoscopic cholecystectomy. Gross findings during the surgery indeed showed an acutely inflamed/edematous gall bladder. Intraoperative cholangiogram was positive for choledocholithiasis. LFTs trended slightly upward on 05/16 likely secondary to choledocholithiasis. Post-surgery [facility] was consulted for ERCP. ERCP was performed on 05/17/[address] Luda Arambula. 2 CBD stones were removed and sphincterotomy was performed; no CBD stent was deployed. Following her ERCP she was resumed on a clear liquid diet and this was advanced without difficulty. She was passing flatus and stool prior to discharge. On day of discharge her LFTs showed significant improvement in comparison to her admission LFTs. She will need repeat LFTs at time of hospital follow-up with her PCP. She will need to avoid NSAIDs for 7 days post-discharge due to ERCP. No antibiotics were prescribed at discharge. Post-op surgical instructions were given, and she will need to follow-up with Dr Rodriguez from surgery in about 2 weeks following her release from the hospital. (2) Choledocholithiasis: As above in #1. There was no evidence of acute cholangitis during the ERCP. She did not have any complicating ERCP-induced acute pancreatitis. (3) Elevated LFTs: Secondary to choledocholithiasis and acute cholecystitis. LFTs improved nicely during her stay s/p lap sujey and s/p ERCP. Repeat LFTs will be needed at time of hospital follow-up. (4) Obesity: BMI 35.7 Encouraged low-fat diet especially in the wake of her lap sujey Total Time Total Time Spent Total Time Spent (In Minutes): 25 Discharge Plan Discharge Items Patient Disposition: Home - Self-Care Reason For Visit: ABDOMINAL PAIN Discharge Diagnosis: 1. abdominal pain due to acute cholecystitis (sick gall bladder) as well as choledocholithiasis (gallstones stuck in the bile duct) 2. removal of gall bladder by Dr Rodriguez 3. ERCP procedure by [facility] for the choledocholithiasis (gallstones stuck in the bile duct were removed) Activity: Per Instructions section Lifting: No more than 10 pounds Bathing Comment: may shower; no soaking in tubs/pools Exercise/Sports: Wait until after follow-up appointment Driving/Machine Use: Resume 3 days after discharge Non-emergency contact: Primary Care Provider and Surgeon Call non-emergency contact if: you have any medication questions, your symptoms worsen, your pain is not controlled, your pain is concerning for you, you have a fever, your temperature is above 101.5, your wound has increased redness, your wound has increased drainage and your wound pain has increased Follow-up/Referrals: Chay Rodriguez, [Physician] - 06/01/21 9:00 am (Please call to schedule follow up in clinic within 2 weeks) [facility] [Primary Care Provider] - Diet: Low Fat Addtl Attending Provider Instructions: Ms Eden, You were admitted to the hospital for abdominal pain due to a sick gall bladder ("acute cholecystitis"). You received IV antibiotics, pain medications, and fluids. On 05/16/21 your gall bladder was removed during a procedure called "laparoscopic cholecystectomy." During the cholecystectomy it was also determined that you had stuck gallstones in your common bile duct. Thus, on 05/17/21 [facility] performed a procedure called ERCP to remove the gallstones in the duct. Your liver function tests were high at time of admission due to the sick gall bladder and bile duct stones. The liver tests have improved nicely while here. On day of discharge your diet was advanced and you are tolerating this nicely. Recommendations - 1. Follow-up with Dr Rodriguez at [facility] in 2 weeks. 2. NO aspirin, motrin, ibuprofen, alleve, naprosyn, Goodie Powders, BC Powders, voltaren gel, or any other "NSAID" for 7 days. 3. Ok to take tylenol in small amounts as needed for pain, discomfort, etc. 4. NO alcohol until your liver function tests are rechecked in the next 1-2 weeks and are determined to be fully normal. 5. Low-fat diet please. If you consume a meal high in fat this may give you diarrhea. 6. Your pain killer medication is called "oxycodone." This medication can make you sleepy. It can also cause constipation. NO DRIVING if you are taking this medication. NO ALCOHOL use if you are taking this medication. 7. See your family doctor within 1 week of discharge. Please have your family doctor recheck your liver function tests to ensure they have normalized. 8. On your drive back to [place] please stop every 60-90 minutes to take a walk and stretch your legs to prevent DVT blood clots of the legs. Return to [facility] if - * you have any concerns about your surgical incisions - redness, drainage, pain, etc * you have fevers over 100.5 degrees * you have severe constipation or you are not passing any gas from your rectum * you have severe diarrhea * you have nausea and/or vomiting * you have uncontrolled abdominal pain * any other concerns It was our pleasure to care for you at [facility]! Speedy recovery, Dr Luke Pending Studies at Discharge: Yes Studies:: surgical pathology Stand-Alone Forms: My [facility], Work/School Release, Smoking Cessation Medications and DC Order Prescriptions: New oxycodone 5 mg tablet 5 - 10 mg PO Q4H Qty: 12 RF: 0 Continued ondansetron HCl 4 mg Tablet 4 mg PO Q6H PRN (Reason: Nausea) RF: 0 famotidine [Pepcid] 20 mg Tablet 20 mg PO DAILY RF: 0 calcium carbonate [Tums] 200 mg calcium (500 mg) Tablet,Chewable 400 - 600 mg PO BID PRN (Reason: gi-upset) RF: 0 Discharge Orders: Discharge Order (Routine); Ordered 05/18/21 Ordered By: Soto Hunter/Other Patient Handouts: Having Laparoscopic Cholecystectomy, ERCP Admission Data Admit Date/Time: 05/17/21 15:27 Attending Provider: Soto Luke Admit Provider: Lorna Mcdowell Primary Care Provider: [facility] Other Providers: Case,Justus G. ; Luda Arambula ; Chay Rodriguez ; Lorna Mcdowell Other Interventions: Discharge Summary Assessment (RN) Last Done: 05/18/21 12:15 Coding Level of Care Code D/C DAY MANAGEMENT <30 MINS Diagnoses Cholecystitis with cholelithiasis K80.01 Biliary obstruction: with biliary obstruction Cholecystitis acuity: acute Cholelithiasis location: gallbladder Elevated LFTs R79.89 Choledocholithiasis K80.50 Obesity E66.9
[2021-05-18] MEDS ORDERED: CALCIUM CARBONATE 500 MG CHEWABLE TAB PO ONE (13:24)
== END 2021-05-18 14:14 | disposition home or self-care (01) | DRG 419 ==
LOC: ED 20:01 → 3W 20:01 → SUATTDRO 05-15 01:23 → 3W 05-15 02:17 → SUATTDRO 05-17 15:27
DX: Z68.35 Body mass index [BMI] 35.0-35.9, adult; E66.9 Obesity, unspecified; K80.42 Calculus of bile duct with acute cholecystitis without obstruction